=== PATIENT | female | born 1960 | race African-American/Black ===

== ENCOUNTER 2017-10-04 22:18 | Inpatient (IN) | payer MEDICAID, OTHER ==
[~2017-10-04] VITALS: Ht 162.6 cm; Wt 74.8 kg
[2017-10-04 22:18] VITALS: BP 156/97
[2017-10-04 23:21] LABS: EOSINOPHILS % (AUTO) 3.7 % (0.0-3.0); HEMATOCRIT 36.7 % (37.0-47.0); HEMOGLOBIN 12.1 G/DL (12.0-16.0); LYMPHOCYTES % (AUTO) 34.6 % (20.0-45.0); MEAN CORPUSCULAR VOLUME 81 FL (80-99); MONOCYTES % (AUTO) 3.6 % (1.0-10.0); NEUTROPHILS % (AUTO) 57.1 % (45.0-75.0); PLATELET COUNT 176 K/UL (150-450); RED BLOOD COUNT 4.51 M/UL (4.20-5.40); RED CELL DISTRIBUTION WIDTH 10.9 % (11.6-14.8); WHITE BLOOD COUNT 3.5 K/UL (4.8-10.8)
[2017-10-04 23:25] LABS: ANION GAP 5 mmol/L (5-15); BLOOD UREA NITROGEN 18 mg/dL (7-18); CARBON DIOXIDE 30 MMOL/L (21-32); CHLORIDE 103 MMOL/L (98-107); CREATININE 0.5 MG/DL (0.55-1.30); POTASSIUM 4.2 MMOL/L (3.5-5.1); SODIUM 138 MMOL/L (136-145)
[2017-10-04 23:37] LABS: ALANINE AMINOTRANSFERASE 19 U/L (12-78); ALBUMIN 2.9 G/DL (3.4-5.0); ALBUMIN/GLOBULIN RATIO 0.7 (1.0-2.7); ALKALINE PHOSPHATASE 118 U/L (46-116); ASPARTATE AMINO TRANSFERASE 23 U/L (15-37); BILIRUBIN,TOTAL 0.2 MG/DL (0.2-1.0)
[2017-10-05] VITALS (7 sets, daily range): BP systolic 103–145; BP diastolic 67–87
[2017-10-05 00:56] LABS: APPEARANCE,URINE CLEAR; BILIRUBIN, URINE NEGATIVE (NEGATIVE); GLUCOSE, URINE (UA) NEGATIVE (NEGATIVE); KETONES,URINE NEGATIVE (NEGATIVE); LEUKOCYTE ESTERASE ,URINE NEGATIVE (NEGATIVE); NITRITE,URINE NEGATIVE (NEGATIVE); PH,URINE 8 (4.5-8.0); PROTEIN,URINE NEGATIVE (NEGATIVE); UROBILINOGEN,URINE 1 MG/DL (0.0-1.0)
[2017-10-05 01:16] LABS: COLOR,URINE YELLOW
[2017-10-05] MEDS ORDERED: MULTIVITAMINS1 EAC2 ORAL (02:19)
[2017-10-05] MEDS ORDERED: ZOFRAN4 M3 ORAL (02:19)
[2017-10-05] MEDS ORDERED: MORPHINE IR15 MG ORAL (02:19)
[2017-10-05] MEDS ORDERED: AMLODIPINE BESY10 MG ORAL (02:19)
[2017-10-05] MEDS ORDERED: GABAPENTIN100 MG ORAL (02:19)
[2017-10-05] MEDS ORDERED: CARBAMAZEPINE200 MG ORAL (02:19)
[2017-10-05] MEDS ORDERED: DULCOLAX10 MG RC (02:19)
[2017-10-05] MEDS ORDERED: [UNRECOGNIZED DRUG - OTHER] BOTH EYES ×2 (02:19→04:00)
[2017-10-05] MEDS ORDERED: TUMS FRESHERS200 MG PO (02:19)
[2017-10-05] MEDS ORDERED: PANTOPRAZOLE SO40 MG ORAL (02:19)
[2017-10-05] MEDS ORDERED: HYDROCODON-ACE1 EA16 ORAL (02:19)
[2017-10-05] MEDS ORDERED: CYMBALTA60 MG ORAL (02:19)
[2017-10-05] MEDS ORDERED: METAMUCIL FIBE3.4 G1 PO (02:19)
[2017-10-05] MEDS ORDERED: CALCIUM CARBON500 M1 PO (04:00)
[2017-10-05] MEDS ORDERED: TEGRETOL100 MG/5 M PO (04:00)
[2017-10-05] MEDS ORDERED: NEURONTIN300 MG ORAL (04:00)
[2017-10-05] MEDS ORDERED: HYDROcodone/Acetamin 7.5/325 tab ORAL PRN (06:15)
[2017-10-05] MEDS ORDERED: Tums 500mg ORAL PRN ×3 (06:15→22:15)
[2017-10-05] MEDS ORDERED: Artificial Tears 1.4% Op Soln BOTH EYES PRN ×3 (07:00→19:00)
[2017-10-05] MEDS ORDERED: D5 1/2NS 1,000 ML IV SCH ×2 (07:00→17:45)
--- NOTE | 2017-10-05 08:38 | Consultation ---
History of Present Illness General Date patient seen: Oct 05, 2017 Present Illness Allergies: Coded Allergies: ASPIRIN (Unverified Allergy, Unknown, 10/04/17) BACLOFEN (Unverified Allergy, Unknown, 10/04/17) PHENYTOIN (Unverified Allergy, Unknown, 10/04/17) Medication History Scheduled Amlodipine Besylate* (Amlodipine Besylate*), 10 MG ORAL DAILY, (Reported) Carbamazepine (Tegretol), 200 MG PO BID, (Reported) Duloxetine Hcl* (Cymbalta*), 60 MG ORAL DAILY, (Reported) Gabapentin (Neurontin), 900 MG ORAL THREE TIMES A DAY, (Reported) Morphine HCl (Morphine Sulfate ER), 15 MG ORAL BID, (Reported) Multivitamins* (Multivitamins*), 1 TAB ORAL DAILY, (Reported) Pantoprazole* (Pantoprazole*), 40 MG ORAL DAILY, (Reported) Psyllium Husk/Aspartame (Metamucil Fiber Singles Packet), 3.4 GM PO BID, ( Reported) Scheduled PRN Bisacodyl (Dulcolax), 10 MG RC PRN PRN for Constipation, (Reported) Calcium Carbonate (Calcium Carbonate), 1,000 MG PO Q8HR PRN for HEARTBURN, ( Reported) Hydrocodone/Acetaminophen 7.5-325* (Hydrocodon-Acetaminoph 7.5-325*), 1 TAB ORAL Q3HR PRN for Severe Pain (Pain Scale 7-10), (Reported) Hydroxypropyl Methylcellulose ([place]), 1 DROP BOTH EYES Q3HR PRN for DRY EYES, ( Reported) Ondansetron* (Zofran*), 4 MG ORAL Q4HR PRN for Nausea & Vomiting, (Reported) Patient History Healthcare decision maker Resuscitation status Full Code Advanced Directive on File Physical Exam Last 24 Hour Vital Signs Date Time Temp Pulse Resp B/P (MAP) Pulse Ox O2 Delivery O2 Flow Rate FiO2 10/05/17 04:13 Room Air 10/05/17 04:00 77 10/05/17 04:00 97.1 82 18 141/87 (105) 95 97.1 10/05/17 03:39 83 10/05/17 03:10 98.6 78 12 109/74 97 Room Air 98.6 10/05/17 03:10 98.6 78 12 109/74 97 Room Air 209.5 10/05/17 01:14 98.6 81 12 125/74 98 Room Air 98.6 10/04/17 22:18 87 18 156/97 96 Room Air 10/04/17 22:05 97 18 156/97 96 Room Air Intake and Output 10/04/17 10/05/17 19:00 07:00 Intake Total 6 ml Output Total 500 ml Balance -494 ml Intake IV Total 6 ml Output Urine Total 500 ml # Voids 1 # Bowel Movements 1 Laboratory Tests Test 10/04/17 23:00 10/05/17 00:30 White Blood Count 3.5 K/UL (4.8-10.8) L Red Blood Count 4.51 M/UL (4.20-5.40) Hemoglobin 12.1 G/DL (12.0-16.0) Hematocrit 36.7 % (37.0-47.0) L Mean Corpuscular Volume 81 FL (80-99) Mean Corpuscular Hemoglobin 27.0 PG (27.0-31.0) Mean Corpuscular Hemoglobin Concent 33.1 G/DL (32.0-36.0) Red Cell Distribution Width 10.9 % (11.6-14.8) L Platelet Count 176 K/UL (150-450) Mean Platelet Volume 7.6 FL (6.5-10.1) Neutrophils (%) (Auto) 57.1 % (45.0-75.0) Lymphocytes (%) (Auto) 34.6 % (20.0-45.0) Monocytes (%) (Auto) 3.6 % (1.0-10.0) Eosinophils (%) (Auto) 3.7 % (0.0-3.0) H Basophils (%) (Auto) 1.0 % (0.0-2.0) Sodium Level 138 MMOL/L (136-145) Potassium Level 4.2 MMOL/L (3.5-5.1) Chloride Level 103 MMOL/L (98-107) Carbon Dioxide Level 30 MMOL/L (21-32) Anion Gap 5 mmol/L (5-15) Blood Urea Nitrogen 18 mg/dL (7-18) Creatinine 0.5 MG/DL (0.55-1.30) L Estimat Glomerular Filtration Rate > 60 mL/min (>60) Glucose Level 111 MG/DL (74-106) H Calcium Level 9.0 MG/DL (8.5-10.1) Total Bilirubin 0.2 MG/DL (0.2-1.0) Aspartate Amino Transf (AST/SGOT) 23 U/L (15-37) Alanine Aminotransferase (ALT/SGPT) 19 U/L (12-78) Alkaline Phosphatase 118 U/L (46-116) H Pro-B-Type Natriuretic Peptide 51 pg/mL (0-125) Total Protein 7.1 G/DL (6.4-8.2) Albumin 2.9 G/DL (3.4-5.0) L Globulin 4.2 g/dL Albumin/Globulin Ratio 0.7 (1.0-2.7) L Lipase 65 U/L (73-393) L Thyroid Stimulating Hormone (TSH) 0.942 uiU/mL (0.358-3.740) Acetaminophen Level < 2 MCG/ML (10-30) L Urine Color Yellow Urine Appearance Clear Urine pH 8 (4.5-8.0) Urine Specific [place] 1.015 (1.005-1.035) Urine Protein Negative (NEGATIVE) Urine Glucose (UA) Negative (NEGATIVE) Urine Ketones Negative (NEGATIVE) Urine Occult Blood Negative (NEGATIVE) Urine Nitrite Negative (NEGATIVE) Urine Bilirubin Negative (NEGATIVE) Urine Urobilinogen 1 MG/DL (0.0-1.0) H Urine Leukocyte Esterase Negative (NEGATIVE) Urine RBC 0-2 /HPF (0 - 2) Urine WBC 0 /HPF (0 - 2) Urine Squamous Epithelial Cells Few /LPF (NONE/OCC) Urine Bacteria None /HPF (NONE) Height (Feet): 5 Height (Inches): 4.00 Weight (Pounds): 165 Medications Current Medications Medications (Trade) Dose Ordered Sig/Arnold Route PRN Reason Start Time Stop Time Status Last Admin Dose Admin Acetaminophen/ Hydrocodone Bitart ([place] 7.5/325) 1 tab Q3H PRN ORAL Severe Pain (Pain Scale 7-10) 10/05/17 06:15 10/12/17 06:14 Amlodipine Besylate (Norvasc) 10 mg DAILY ORAL 10/05/17 09:00 11/04/17 08:59 Artificial Tears (Akwa-Tears) 1 drop Q3H PRN BOTH EYES DRY EYES 10/05/17 07:00 11/04/17 06:59 Bisacodyl (Dulcolax) 10 mg DAILY PRN RECTAL Constipation 10/05/17 06:15 11/04/17 06:14 Calcium Carbonate (Tums) 1,000 mg Q8H PRN ORAL HEARTBURN 10/05/17 06:15 11/04/17 06:14 Carbamazepine (TEGretol) 200 mg TWICE A DAY ORAL 10/05/17 09:00 11/04/17 08:59 Dextrose/Sodium Chloride 1,000 ml @ 60 mls/hr [id number] IV 10/05/17 07:00 11/04/17 06:59 10/05/17 06:54 Duloxetine HCl (Cymbalta) 60 mg DAILY ORAL 10/05/17 09:00 11/04/17 08:59 Gabapentin (Neurontin) 900 mg THREE TIMES A DAY ORAL 10/05/17 09:00 11/04/17 08:59 Morphine HCl (Morphine IR) 15 mg BID ORAL 10/05/17 09:00 10/12/17 08:59 UNV Multivitamins (Multivitamins) 1 tab DAILY ORAL 10/05/17 09:00 11/04/17 08:59 Ondansetron HCl (Zofran) 4 mg Q4H PRN ORAL Nausea & Vomiting 10/05/17 06:15 11/04/17 06:14 Pantoprazole (Protonix) 40 mg DAILY ORAL 10/05/17 09:00 11/04/17 08:59 Psyllium Hydrophilic Mucilloid (Metamucil) 1 pkt BID ORAL 10/05/17 09:00 11/04/17 08:59 Assessment/Plan Assessment/Plan (1) Multiple sclerosis (2) Neuropathic pain (3) Altered mental status Seen dictated Eddi Valentin Oct 05, 2017 08:38
[2017-10-05 08:46] LABS: BASOPHILS % (AUTO) 0.3 % (0.0-2.0); EOSINOPHILS % (AUTO) 2.5 % (0.0-3.0); HEMOGLOBIN 12.1 G/DL (12.0-16.0); LYMPHOCYTES % (AUTO) 24.2 % (20.0-45.0); MEAN CORPUSCULAR VOLUME 82 FL (80-99); NEUTROPHILS % (AUTO) 67.9 % (45.0-75.0); PLATELET COUNT 224 K/UL (150-450); RED BLOOD COUNT 4.51 M/UL (4.20-5.40); RED CELL DISTRIBUTION WIDTH 10.8 % (11.6-14.8); WHITE BLOOD COUNT 4.2 K/UL (4.8-10.8)
[2017-10-05] MEDS: Metamucil Pkt ORAL SCH ×3 (09:00→18:20)
[2017-10-05] MEDS ORDERED: Morphine IR 15mg tab ORAL SCH (09:00)
[2017-10-05] MEDS ORDERED: DULoxetine 30mg cap ORAL SCH (09:00)
[2017-10-05] MEDS ORDERED: Norco 5mg/325mg tab ORAL PRN ×3 (09:00→21:30)
[2017-10-05] MEDS ORDERED: carBAMazepine 200mg tab ORAL SCH ×3 (09:00→21:00)
[2017-10-05 09:01] LABS: ANION GAP 5 mmol/L (5-15); BLOOD UREA NITROGEN 17 mg/dL (7-18); CARBON DIOXIDE 29 MMOL/L (21-32); CHLORIDE 103 MMOL/L (98-107); CREATININE 0.5 MG/DL (0.55-1.30); SODIUM 137 MMOL/L (136-145)
--- NOTE | 2017-10-05 11:31 | Diagnostic Imaging Report ---
Indications: Altered mental status Technique: Spiral acquisitions obtained through the brain. Angled axial and coronal 5 x 5 mm slices were reconstructed. Total dose length product 1330.34 mGycm. CTDI vol(s) 70.38 mGy. Dose reduction achieved using automated exposure control Comparison: Cysts Findings: There is enlargement of the ventricles and extra axial CSF spaces, and periventricular deep white matter low-attenuation, consistent with chronic ischemic change. Old lacunar infarct is seen in the left frontal deep white matter and another in the left external capsule region.. No acute intracranial hemorrhage nor edema, mass effect, nor midline shift. Intact calvarium. Visualized orbits and sinuses are unremarkable. Impression: Cerebral volume loss, out of proportion to age. Periventricular deep white matter low-attenuation consistent with chronic ischemic change Old infarcts as described Negative for acute intracranial bleed or mass effect The CT scanner at [facility] is accredited by the [place] [employer] and the scans are performed using protocols designed to limit radiation exposure to as low as reasonably achievable to attain images of sufficient resolution adequate for diagnostic evaluation.
--- NOTE | 2017-10-05 11:57 | Consultation ---
History of Present Illness General Date patient seen: Oct 05, 2017 Chief Complaint: Altered Level of Consciousness Present Illness HPI 56 year old female with hx of MS, CVA, brought in by paramedics with CC of increased weakness and ALOC. Pt is currently awake and looks comfortable, but can't give any history. Allergies: Coded Allergies: ASPIRIN (Unverified Allergy, Unknown, 10/04/17) BACLOFEN (Unverified Allergy, Unknown, 10/04/17) PHENYTOIN (Unverified Allergy, Unknown, 10/04/17) Medication History Scheduled Amlodipine Besylate* (Amlodipine Besylate*), 10 MG ORAL DAILY, (Reported) Carbamazepine (Tegretol), 200 MG PO BID, (Reported) Duloxetine Hcl* (Cymbalta*), 60 MG ORAL DAILY, (Reported) Gabapentin (Neurontin), 900 MG ORAL THREE TIMES A DAY, (Reported) Morphine HCl (Morphine Sulfate ER), 15 MG ORAL BID, (Reported) Multivitamins* (Multivitamins*), 1 TAB ORAL DAILY, (Reported) Pantoprazole* (Pantoprazole*), 40 MG ORAL DAILY, (Reported) Psyllium Husk/Aspartame (Metamucil Fiber Singles Packet), 3.4 GM PO BID, ( Reported) Scheduled PRN Bisacodyl (Dulcolax), 10 MG RC PRN PRN for Constipation, (Reported) Calcium Carbonate (Calcium Carbonate), 1,000 MG PO Q8HR PRN for HEARTBURN, ( Reported) Hydrocodone/Acetaminophen 7.5-325* (Hydrocodon-Acetaminoph 7.5-325*), 1 TAB ORAL Q3HR PRN for Severe Pain (Pain Scale 7-10), (Reported) Hydroxypropyl Methylcellulose ([place]), 1 DROP BOTH EYES Q3HR PRN for DRY EYES, ( Reported) Ondansetron* (Zofran*), 4 MG ORAL Q4HR PRN for Nausea & Vomiting, (Reported) Patient History Healthcare decision maker Resuscitation status Full Code Advanced Directive on File Past Medical/Surgical History Past Medical/Surgical History: (1) Multiple sclerosis (2) History of CVA (cerebrovascular accident) Review of Systems All Other Systems: negative except mentioned in HPI Physical Exam General Appearance: WD/WN Lines, tubes and drains: peripheral HEENT: normocephalic, atraumatic Neck: non-tender, normal alignment Respiratory/Chest: chest wall non-tender, lungs clear Breasts: no masses Cardiovascular/Chest: normal peripheral pulses Abdomen: normal bowel sounds Genitourinary/Rectal: normal genital exam Extremities: normal range of motion Last 24 Hour Vital Signs Date Time Temp Pulse Resp B/P (MAP) Pulse Ox O2 Delivery O2 Flow Rate FiO2 10/05/17 09:53 89 135/86 10/05/17 09:00 Room Air 10/05/17 08:00 97.9 89 19 135/86 (102) 95 97.9 10/05/17 04:13 Room Air 10/05/17 04:00 77 10/05/17 04:00 97.1 82 18 141/87 (105) 95 97.1 10/05/17 03:39 83 10/05/17 03:10 98.6 78 12 109/74 97 Room Air 98.6 10/05/17 03:10 98.6 78 12 109/74 97 Room Air 209.5 10/05/17 01:14 98.6 81 12 125/74 98 Room Air 98.6 10/04/17 22:18 87 18 156/97 96 Room Air 10/04/17 22:05 97 18 156/97 96 Room Air Intake and Output 10/04/17 10/05/17 19:00 07:00 Intake Total 6 ml Output Total 500 ml Balance -494 ml Intake IV Total 6 ml Output Urine Total 500 ml # Voids 1 # Bowel Movements 1 Laboratory Tests Test 10/04/17 23:00 10/05/17 00:30 10/05/17 08:15 White Blood Count 3.5 K/UL (4.8-10.8) L 4.2 K/UL (4.8-10.8) L Red Blood Count 4.51 M/UL (4.20-5.40) 4.51 M/UL (4.20-5.40) Hemoglobin 12.1 G/DL (12.0-16.0) 12.1 G/DL (12.0-16.0) Hematocrit 36.7 % (37.0-47.0) L 37.0 % (37.0-47.0) Mean Corpuscular Volume 81 FL (80-99) 82 FL (80-99) Mean Corpuscular Hemoglobin 27.0 PG (27.0-31.0) 26.9 PG (27.0-31.0) L Mean Corpuscular Hemoglobin Concent 33.1 G/DL (32.0-36.0) 32.8 G/DL (32.0-36.0) Red Cell Distribution Width 10.9 % (11.6-14.8) L 10.8 % (11.6-14.8) L Platelet Count 176 K/UL (150-450) 224 K/UL (150-450) Mean Platelet Volume 7.6 FL (6.5-10.1) 6.4 FL (6.5-10.1) L Neutrophils (%) (Auto) 57.1 % (45.0-75.0) 67.9 % (45.0-75.0) Lymphocytes (%) (Auto) 34.6 % (20.0-45.0) 24.2 % (20.0-45.0) Monocytes (%) (Auto) 3.6 % (1.0-10.0) 5.0 % (1.0-10.0) Eosinophils (%) (Auto) 3.7 % (0.0-3.0) H 2.5 % (0.0-3.0) Basophils (%) (Auto) 1.0 % (0.0-2.0) 0.3 % (0.0-2.0) Sodium Level 138 MMOL/L (136-145) 137 MMOL/L (136-145) Potassium Level 4.2 MMOL/L (3.5-5.1) 4.0 MMOL/L (3.5-5.1) Chloride Level 103 MMOL/L (98-107) 103 MMOL/L (98-107) Carbon Dioxide Level 30 MMOL/L (21-32) 29 MMOL/L (21-32) Anion Gap 5 mmol/L (5-15) 5 mmol/L (5-15) Blood Urea Nitrogen 18 mg/dL (7-18) 17 mg/dL (7-18) Creatinine 0.5 MG/DL (0.55-1.30) L 0.5 MG/DL (0.55-1.30) L Estimat Glomerular Filtration Rate > 60 mL/min (>60) > 60 mL/min (>60) Glucose Level 111 MG/DL (74-106) H 97 MG/DL (74-106) Calcium Level 9.0 MG/DL (8.5-10.1) 9.0 MG/DL (8.5-10.1) Total Bilirubin 0.2 MG/DL (0.2-1.0) Aspartate Amino Transf (AST/SGOT) 23 U/L (15-37) Alanine Aminotransferase (ALT/SGPT) 19 U/L (12-78) Alkaline Phosphatase 118 U/L (46-116) H Pro-B-Type Natriuretic Peptide 51 pg/mL (0-125) Total Protein 7.1 G/DL (6.4-8.2) Albumin 2.9 G/DL (3.4-5.0) L Globulin 4.2 g/dL Albumin/Globulin Ratio 0.7 (1.0-2.7) L Lipase 65 U/L (73-393) L Thyroid Stimulating Hormone (TSH) 0.942 uiU/mL (0.358-3.740) Acetaminophen Level < 2 MCG/ML (10-30) L Urine Color Yellow Urine Appearance Clear Urine pH 8 (4.5-8.0) Urine Specific [place] 1.015 (1.005-1.035) Urine Protein Negative (NEGATIVE) Urine Glucose (UA) Negative (NEGATIVE) Urine Ketones Negative (NEGATIVE) Urine Occult Blood Negative (NEGATIVE) Urine Nitrite Negative (NEGATIVE) Urine Bilirubin Negative (NEGATIVE) Urine Urobilinogen 1 MG/DL (0.0-1.0) H Urine Leukocyte Esterase Negative (NEGATIVE) Urine RBC 0-2 /HPF (0 - 2) Urine WBC 0 /HPF (0 - 2) Urine Squamous Epithelial Cells Few /LPF (NONE/OCC) Urine Bacteria None /HPF (NONE) Height (Feet): 5 Height (Inches): 4.00 Weight (Pounds): 165 Medications Current Medications Medications (Trade) Dose Ordered Sig/Arnold Route PRN Reason Start Time Stop Time Status Last Admin Dose Admin Acetaminophen (Tylenol) 650 mg Q4H PRN ORAL Mild Pain/Temp > 100.5 10/05/17 09:00 11/04/17 08:59 Acetaminophen/ Hydrocodone Bitart ([place] 5/325) 1 tab Q4H PRN ORAL Severe Pain (Pain Scale 7-10) 10/05/17 09:30 10/12/17 08:59 Amlodipine Besylate (Norvasc) 10 mg DAILY ORAL 10/05/17 09:00 11/04/17 08:59 10/05/17 09:53 Artificial Tears (Akwa-Tears) 1 drop Q3H PRN BOTH EYES DRY EYES 10/05/17 07:00 11/04/17 06:59 Bisacodyl (Dulcolax) 10 mg DAILY PRN RECTAL Constipation 10/05/17 06:15 11/04/17 06:14 Calcium Carbonate (Tums) 1,000 mg Q8H PRN ORAL HEARTBURN 10/05/17 06:15 11/04/17 06:14 Carbamazepine (TEGretol) 200 mg Q12HR ORAL 10/05/17 09:00 11/04/17 08:59 10/05/17 09:53 Dextrose/Sodium Chloride 1,000 ml @ 60 mls/hr [id number] IV 10/05/17 07:00 11/04/17 06:59 10/05/17 06:54 Duloxetine HCl (Cymbalta) 60 mg DAILY ORAL 10/05/17 09:00 11/04/17 08:59 10/05/17 09:53 Gabapentin (Neurontin) 900 mg THREE TIMES A DAY ORAL 10/05/17 09:00 11/04/17 08:59 10/05/17 09:52 Multivitamins (Multivitamins) 1 tab DAILY ORAL 10/05/17 09:00 11/04/17 08:59 10/05/17 09:53 Ondansetron HCl (Zofran) 4 mg Q4H PRN ORAL Nausea & Vomiting 10/05/17 06:15 11/04/17 06:14 Pantoprazole (Protonix) 40 mg DAILY ORAL 10/05/17 09:00 11/04/17 08:59 10/05/17 09:52 Psyllium Hydrophilic Mucilloid (Metamucil) 1 pkt BID ORAL 10/05/17 09:00 11/04/17 08:59 Assessment/Plan Problem List: (1) Altered level of consciousness ICD Codes: R40.4 - Transient alteration of awareness SNOMED: 5108670 (2) Generalized weakness ICD Codes: R53.1 - Weakness SNOMED: 84182616 (3) Multiple sclerosis ICD Codes: G35 - Multiple sclerosis SNOMED: 83213343 (4) History of CVA (cerebrovascular accident) ICD Codes: Z86.73 - Personal history of transient ischemic attack (TIA), and cerebral infarction without residual deficits SNOMED: 037215553 Assessment/Plan neuro evaluation pt/ot look for occult infection dvt prophylaxis check electrolytes Ambrocio Poole MD Oct 05, 2017 11:57
[2017-10-05] MEDS ORDERED: Metamucil Pkt ORAL SCH (18:00)
[2017-10-05] MEDS: D5 1/2NS 1,000 ML IV SCH (18:20)
--- NOTE | 2017-10-05 20:11 | Consultation ---
Consult Note Consult Note NEUROLOGY CONSULTATION: Full note dictated #[id number] 56 y/o, RH, BF with long H/O MS which started in the late which was treated with Avonex and Copaxone in the past but she has not been given any DMA for numerous years. She also has left trigeminal neuralgia. She has not walked for numerous years and her limbs are in contractures. For the last few days she has become generally weaker and he mind has been less clear. ON EXAM: Problems with orientation, memory, VSF, HCF, language. 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 CT of brain with multiple DWM lesions. IMPRESSION: Exacerbation of MS Unclear what is causing the significant cognitive dysfunction - r/o treatable causes. REC: W/U for cognitive dysfunction MRI of brain w/o and W jayla to evaluate for acute MS exacerbation If positive Solumedrol 1 G IV q d x 3. Chela Moran M.D., M.S.P.H. CHELA MORAN Oct 05, 2017 20:11
[2017-10-05] MEDS ORDERED: Gadavist 7.5mMol/7.5ml vial IV PRN (20:15)
[2017-10-05] MEDS: Heparin 5000 units/ml inj SUBQ SCH (20:42)
[2017-10-05] MEDS: carBAMazepine 200mg tab ORAL SCH (20:43)
[2017-10-05] MEDS ORDERED: Heparin 5000 units/ml inj SUBQ SCH ×2 (21:00)
--- NOTE | 2017-10-05 22:00 | History and Physical Report ---
DATE OF ADMISSION: 10/05/2017 TIME: p.m. CONSULTANTS: 1. Ambrocio Poole M.D. 2. Seng Moran M.D. 3. Mulugeta Oreilly M.D. 4. Clayton Mott M.D. CHIEF COMPLAINT: Altered mental status, weakness and chronic pain. BRIEF HISTORY: This is a 56-year-old female from an assisted living facility presented with above-mentioned diagnoses, admitted to telemetry for further treatment. Currently calm, sleeping in bed, not really answer questions. PAST MEDICAL HISTORY: CVA, ulcer, altered mental status, multiple sclerosis and weakness. PAST SURGICAL HISTORY: Unknown. MEDICATIONS: Heparin, hydrocodone, amlodipine, multivitamin, pantoprazole, Dilantin, carbamazepine, Tylenol, , and Zofran. ALLERGIES: Aspirin, baclofen and phenytoin. SOCIAL HISTORY: Unable to obtain secondary to the patient's condition. REVIEW OF SYSTEMS: Unavailable. PHYSICAL EXAMINATION: GENERAL: Lethargic in bed, nonverbal. VITAL SIGNS: Temperature is 97 degrees, pulse 59, respirations 20, and blood pressure 145/82. CARDIOVASCULAR: No murmur. LUNGS: Poor air exchange. ABDOMEN: Bowel sounds distant. EXTREMITIES: No cyanosis, clubbing, or edema. NEUROLOGIC: The patient is flaccid in bed, not following directions. LABORATORY AND DIAGNOSTIC DATA: White count 4.2, otherwise CBC is normal. BMP show creatinine 0.5, otherwise normal. Urine toxicology, Tylenol less than 2. Urinalysis basically normal. ASSESSMENT: 1. Altered mental status. 2. Chronic pain. 3. Bed ridden. 4. Hypertension. 5. CVA. 6. Altered mental status. 7. Multiple sclerosis. 8. Weakness. PLAN: 1. Continue previous medications. 2. OT/PT. 3. Dietary evaluation. 4. Blood pressure and pain control. 5. We will continue to follow this patient. 6. Dr. Poole, Dr. Moran, Dr. Oreilly, and Dr. Mott to consult. He Orta D.O. DR: SIA JOB#: [id number] CC:
--- NOTE | 2017-10-05 22:30 | Consultation ---
DATE OF CONSULTATION: 10/05/2017 PAIN MANAGEMENT CONSULTATION CONSULTING PHYSICIAN: Mulugeta Oreilly M.D. REFERRING PHYSICIAN: He Orta D.O. PHYSICIAN INSPECTOR BOILER: KARRIE Garg. CHIEF COMPLAINT: Altered mental status. HISTORY OF PRESENT ILLNESS: This is a 56-year-old female, who is being seen on the telemetry floor of [facility] for initial comprehensive pain management consultation. The patient was admitted under the care of Dr. Orta due to altered mental status and generalized weakness. She has a history of MS and was recently seen by Jyoti Jamison, nurse practitioner in [facility], at this time, living in an assisted living facility, [facility], and again was seen by Jyoti Jamison in [facility] with nurse practitioner, started on morphine extended release 15 mg tablet twice a day with [place] solution and was brought to the hospital due to altered mental status. The patient reports that she has MS and has body pain due to neuropathic issues, is on Neurontin 900 mg 2 times a day. The patient is a DNR, in [facility] and possibly on hospice care. At this time, the patient was started on morphine immediate release 15 mg tablet twice a day with [place] 7.5/325 mg one tablet every 3 hours as needed for severe pain and I discussed with the patient about discontinuing this medication at this time so that the patient will become more oriented. She seems to understand and agree and is showing no signs of mental status changes at this time. PAST MEDICAL HISTORY: Multiple sclerosis. PAST SURGICAL HISTORY: Denies. ALLERGIES: Aspirin, baclofen, and phenytoin. MEDICATIONS: Amlodipine, Tegretol, Cymbalta, Neurontin, morphine, multivitamin, pantoprazole, Metamucil, Dulcolax, calcium, [place], Xanax, and Zofran. SOCIAL HISTORY: Denies smoking tobacco, drinking alcohol, or IV drug abuse. REVIEW OF SYSTEMS: Denies rash, fever, chills, sweating, dizziness, drowsiness, blurred vision, sore throat, change in weight. No shortness of breath or chest pain. No nausea, vomiting, or blood in the stool or urine. No bowel or bladder incontinence. She complains of general body pain. PHYSICAL EXAMINATION: GENERAL: Alert, awake, and oriented. VITAL SIGNS: Blood pressure 141/87, heart rate is 82, oxygen saturation is 95%, respiratory rate is 18, and temperature is 97.1 degrees Fahrenheit. HEENT: PERRLA. NECK: Range of motion is full in all directions. No tenderness to paracervical muscles. No adenopathy. LUNGS: Decreased breath sounds bilaterally. HEART: S1 and S2, regular. ABDOMEN: Benign. BACK: Range of motion is decreased in flexion and extension with tenderness to paraspinal muscles, trapezius, and rhomboid muscles. EXTREMITIES: Upper and lower extremity range of motion is decreased due to the patient's condition. No cyanosis. No clubbing. NEUROLOGIC: Sensory is reduced. Reflexes are not obtainable. No adenopathy. ASSESSMENT AND PLAN: This is a 56-year-old female with multiple sclerosis, neuropathic pain, and altered mental status. The patient will be discontinued off the morphine IR and will be decreased to [place] 5/325 mg one tablet every 4 hours as needed for severe pain. We recommend the patient to be seen by a neurologist at this time as per the mechanic recovery, and the patient was discussed with Dr. Oreilly and Dr. Oreilly concurred. We will follow the patient. Thank you very much for the courtesy of this consultation. Mulugeta Oreilly M.D. KARRIE Sorto DR: DEJUAN JOB#: [id number] CC:
[2017-10-06] VITALS: BP 102/57
[2017-10-06 04:00] VITALS: BP 111/79
--- NOTE | 2017-10-06 04:15 | Consultation ---
DATE OF CONSULTATION: 10/05/2017 NEUROLOGY CONSULTATION CONSULTING PHYSICIAN: Seng Moran M.D. REQUESTING PHYSICIAN: He Orta D.O. HISTORY: Ms. Arabella Gayle is a 56-year-old, right-handed, black lady who has a long history of multiple sclerosis which started in the late . She was treated for the problem at first with Avonex and then with Copaxone; however, for numerous years, she has been without any disease modifying agents. She also has a history of left trigeminal neuralgia, which at t his point in time is well controlled. She has not walked for numerous years and her limbs are in contractures. For the last few days, she has become generally weaker and her mind has become unclear. As a result of that, she was hospitalized from her [facility]. She cannot give any further details of what exactly happened. PAST MEDICAL HISTORY: Significant for multiple sclerosis, diagnosed in the late , treated with Avonex and Copaxone in the past, but on no disease modifying agent for numerous years, trigeminal neuralgia on the left side, significant debility related to her multiple sclerosis, and chronic pain syndrome related to multiple sclerosis. FAMILY HISTORY: Nothing significant as per the patient. PERSONAL HISTORY: Home: She lives in a fci. 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 Habits: She denies use of alcohol, tobacco, or illicit drugs. MEDICATIONS: Present medications include amlodipine, Cymbalta, Protonix, Tegretol 200 mg q.12 h., artificial tears, Zofran, Tylenol, gabapentin 900 mg 3 times a day, [place] p.r.n., and Metamucil. PHYSICAL EXAMINATION: GENERAL: She is a well-developed, well-nourished, black lady, lying in bed, in no acute distress. VITAL SIGNS: Pulse 85/minute, blood pressure 115/74 mmHg, respirations 20/minute, and temperature 97.9 degrees Fahrenheit. HEAD: Normocephalic and atraumatic. NECK: No neck rigidity was observed. EENT: Examination benign. NEUROLOGIC EXAMINATION: MENTAL STATUS EXAMINATION: She was awake and alert. She was oriented to self and September 2017. She did not know the exact date and did not know where she was located. She was able to recall 3/3 words immediately, but could only remember 2/3 words in 1 minute and 3 minutes. She was able to remember presidents, Trump and Obama, but could not remember presidents prior to that. Her mathematical skills were impaired. Her visuospatial function was also impaired. SPEECH: She had a mild dysarthria. LANGUAGE: She had anomia for low-frequency words. CRANIAL NERVE EXAMINATION: II: The visual everett were intact on confrontation testing. III, IV & : The external ocular movements were full and the pupils 3 mm in diameter, equal, round, regular, and reactive sluggishly to light. V: She had normal facial sensations and the temporales, masseters, and pterygoids functioned normally. VII: She had left seventh central facial paresis. VIII: She was able to hear well and had no nystagmus. IX: The palate moved symmetrically on phonation. X: She had no hoarseness of voice. XI: The sternocleidomastoids and trapezii functioned normally. XII: The tongue was in the midline without any fasciculations or atrophy. MOTOR SYSTEM: The tone was increased in all four extremities with a significant degree of spasticity involving the lower extremities more than the upper extremities and the left side more than the right side. Examination of muscle mass revealed significant wasting predominantly of the lower extremities and the left more than right upper extremity. Examination of power revealed G 0/5 power in both lower extremities, G 2/5 power in the left upper extremity and G 4/5 power in the right upper extremity. SENSORY EXAMINATION: She was able to discern between pinprick and light touch over her entire body. REFLEXES: 1+ on the left and trace+ on the right at the biceps, triceps, and brachioradialis. 0 at both knees and ankles. The plantar responses were mute bilaterally. COORDINATION, STANCE & GAIT: Could not be tested. DIAGNOSTIC IMPRESSION: 1. Ms. Arabella Gayle is a 56-year-old, right-handed, black lady with a long history of multiple sclerosis, which in the past was treated with Avonex and Copaxone, but has not been treated with any disease modifying agent for numerous years. She also has a history of left trigeminal neuralgia and significant debility related to her multiple sclerosis. She is now living in a fci, dependent on all her activities of daily living. She was hospitalized with increased generalized weakness and an alteration in mental state. 2. On neurological examination, at this time, she does exhibit problems with orientation, recent and remote memory, visuospatial function, higher cognitive function, and language. She also has left seventh central facial paresis, a paraplegia of a spastic nature, left greater than right upper extremity paresis, relatively normal sensations, loss of deep tendon reflexes in the lower extremities with loss of plantar responses and diminished deep tendon reflexes in the upper extremities with the left side slightly brisker than the right. 3. The CT scan of the brain without contrast reveals multiple deep white matter lesions, but no acute pathology. 4. Laboratory data thus far reveal a relatively normal CBC, a relatively normal chemistry panel and benign urinalysis. 5. The patient's history, neurological examination, and laboratory data associated with her imaging studies are most compatible with a possible exacerbation of her multiple sclerosis causing generalized weakness that is worse than her baseline. The cognitive dysfunction may also be related to the multiple sclerosis; however, other treatable causes should be excluded. RECOMMENDATIONS: 1. Agree with management thus far. 2. An MRI scan of the brain without and with gadolinium will be ordered to evaluate the patient for an acute MS exacerbation. 3. She will be worked up thoroughly for other treatable causes of cognitive dysfunction with a B12 level, folate level, vitamin D level, RPR, glycohemoglobin, Westergren sedimentation rate, TSH, and hemoglobin A1c. 4. If the MRI does in fact reveal a new MS lesion or lesions, then the patient will be treated with a 3-day course of Solu-Medrol 1 G intravenously daily. 5. The patient should be kept as active as possible. Thank you for entrusting me with the care of Ms. Gayle. I shall follow her with you. Seng Moran M.D., M.S.P.H. DR: JESSIKA JOB#: [id number] [email or web address]
[2017-10-06 07:27] LABS: BASOPHILS % (AUTO) 0.6 % (0.0-2.0); EOSINOPHILS % (AUTO) 1.9 % (0.0-3.0); HEMATOCRIT 34.6 % (37.0-47.0); HEMOGLOBIN 11.5 G/DL (12.0-16.0); LYMPHOCYTES % (AUTO) 19.4 % (20.0-45.0); MEAN CORPUSCULAR VOLUME 81 FL (80-99); NEUTROPHILS % (AUTO) 73.1 % (45.0-75.0); PLATELET COUNT 221 K/UL (150-450); RED BLOOD COUNT 4.25 M/UL (4.20-5.40); RED CELL DISTRIBUTION WIDTH 10.7 % (11.6-14.8); WHITE BLOOD COUNT 3.5 K/UL (4.8-10.8)
[2017-10-06 07:45] LABS: ANION GAP 4 mmol/L (5-15); BLOOD UREA NITROGEN 7 mg/dL (7-18); CALCIUM 8.9 MG/DL (8.5-10.1); CARBON DIOXIDE 30 MMOL/L (21-32); CHLORIDE 103 MMOL/L (98-107); CREATININE 0.5 MG/DL (0.55-1.30); POTASSIUM 3.6 MMOL/L (3.5-5.1); SODIUM 137 MMOL/L (136-145)
[2017-10-06 08:00] VITALS: BP 132/87
--- NOTE | 2017-10-06 08:49 | General Progress Note ---
Assessment/Plan Assessment/Plan (1) Multiple sclerosis (2) Neuropathic pain (3) Altered mental status Patient will be continued on [place] as needed. D/w Dr. Oreilly and he concurred. Subjective Date patient seen: Oct 06, 2017 Time patient seen: 07:00 - am Allergies: Coded Allergies: ASPIRIN (Unverified Allergy, Unknown, 10/04/17) BACLOFEN (Unverified Allergy, Unknown, 10/04/17) PHENYTOIN (Unverified Allergy, Unknown, 10/04/17) Subjective REVIEW OF SYSTEMS: Denies rash, fever, chills, sweating, dizziness, drowsiness, blurred vision, sore throat, change in weight. No shortness of breath or chest pain. No nausea, vomiting, or blood in the stool or urine. No bowel or bladder incontinence. She complains of general body pain. SUBJECTIVE: Patient is in bed showing no signs of pain or distress. Will be going for MRI of the brain as per Neurologist. She has no new complaints. Objective Last 24 Hour Vital Signs Date Time Temp Pulse Resp B/P (MAP) Pulse Ox O2 Delivery O2 Flow Rate FiO2 10/06/17 04:00 98.1 82 20 111/79 (90) 95 98.1 10/06/17 00:00 97.5 80 19 102/57 (72) 96 97.5 80 10/05/17 21:00 Room Air 10/05/17 20:00 97.3 85 20 103/67 (79) 98 97.3 10/05/17 16:00 97.9 85 20 115/74 (88) 97 97.9 10/05/17 12:00 79 10/05/17 12:00 97.2 80 21 145/82 (103) 95 97.2 10/05/17 09:53 89 135/86 10/05/17 09:00 Room Air Intake and Output 10/05/17 10/06/17 19:00 07:00 Intake Total 900 ml Balance 900 ml Intake Oral 240 ml IV Total 660 ml # Voids 4 # Bowel Movements 1 1 Laboratory Tests 10/06/17 06:00: White Blood Count 3.5L, Red Blood Count 4.25, Hemoglobin 11.5L, Hematocrit 34.6L , Mean Corpuscular Volume 81, Mean Corpuscular Hemoglobin 27.0, Mean Corpuscular Hemoglobin Concent 33.2, Red Cell Distribution Width 10.7L, Platelet Count 221, Mean Platelet Volume 6.8, Neutrophils (%) (Auto) 73.1, Lymphocytes (%) (Auto) 19.4L, Monocytes (%) (Auto) 5.0, Eosinophils (%) (Auto) 1.9, Basophils (%) (Auto) 0.6, Sodium Level 137, Potassium Level 3.6, Chloride Level 103, Carbon Dioxide Level 30, Anion Gap 4L, Blood Urea Nitrogen 7, Creatinine 0.5L, Estimat Glomerular Filtration Rate > 60, Glucose Level 107H, Calcium Level 8.9 Height (Feet): 5 Height (Inches): 4.00 Weight (Pounds): 165 Objective GENERAL: Alert, awake, and oriented. LUNGS: Decreased breath sounds bilaterally. HEART: S1 and S2, regular. ABDOMEN: Benign. EXTREMITIES: No cyanosis. No clubbing. NEUROLOGIC: No changes. Eddi Valentin Oct 06, 2017 08:49
[2017-10-06] MEDS ORDERED: DULoxetine 30mg cap ORAL SCH (09:00)
[2017-10-06] MEDS: Metamucil Pkt ORAL SCH ×2 (09:00→17:41)
[2017-10-06] MEDS: carBAMazepine 200mg tab ORAL SCH ×2 (10:01→21:00)
[2017-10-06] MEDS: DULoxetine 30mg cap ORAL SCH (10:01)
[2017-10-06] MEDS: Heparin 5000 units/ml inj SUBQ SCH ×2 (10:11→21:03)
[2017-10-06] MEDS: D5 1/2NS 1,000 ML IV SCH (10:12)
--- NOTE | 2017-10-06 11:22 | General Progress Note ---
Assessment/Plan Problem List: (1) HTN (hypertension) ICD Codes: I10 - Essential (primary) hypertension SNOMED: 71043774 (2) Chronic pain ICD Codes: G89.29 - Other chronic pain SNOMED: 23699873 (3) Altered level of consciousness ICD Codes: R40.4 - Transient alteration of awareness SNOMED: 9022140 (4) Multiple sclerosis ICD Codes: G35 - Multiple sclerosis SNOMED: 63042529 (5) History of CVA (cerebrovascular accident) ICD Codes: Z86.73 - Personal history of transient ischemic attack (TIA), and cerebral infarction without residual deficits SNOMED: 846976947 (6) Generalized weakness ICD Codes: R53.1 - Weakness SNOMED: 33115898 Status: unchanged Assessment/Plan ot pt diet pain control cbc bmp am Subjective Constitutional: Reports: weakness Allergies: Coded Allergies: ASPIRIN (Unverified Allergy, Unknown, 10/04/17) BACLOFEN (Unverified Allergy, Unknown, 10/04/17) PHENYTOIN (Unverified Allergy, Unknown, 10/04/17) All Systems: reviewed and negative except above Subjective calm in bed Objective Last 24 Hour Vital Signs Date Time Temp Pulse Resp B/P (MAP) Pulse Ox O2 Delivery O2 Flow Rate FiO2 10/06/17 10:00 94 132/87 10/06/17 09:00 Room Air 10/06/17 08:00 97.9 94 21 132/87 (102) 95 97.9 94 10/06/17 04:00 98.1 82 20 111/79 (90) 95 98.1 10/06/17 00:00 97.5 80 19 102/57 (72) 96 97.5 80 10/05/17 21:00 Room Air 10/05/17 20:00 97.3 85 20 103/67 (79) 98 97.3 10/05/17 16:00 97.9 85 20 115/74 (88) 97 97.9 10/05/17 12:00 79 10/05/17 12:00 97.2 80 21 145/82 (103) 95 97.2 Intake and Output 10/05/17 10/06/17 19:00 07:00 Intake Total 900 ml Balance 900 ml Intake Oral 240 ml IV Total 660 ml # Voids 4 # Bowel Movements 1 1 Laboratory Tests 8/10/18 06:00: White Blood Count 3.5L, Red Blood Count 4.25, Hemoglobin 11.5L, Hematocrit 34.6L , Mean Corpuscular Volume 81, Mean Corpuscular Hemoglobin 27.0, Mean Corpuscular Hemoglobin Concent 33.2, Red Cell Distribution Width 10.7L, Platelet Count 221, Mean Platelet Volume 6.8, Neutrophils (%) (Auto) 73.1, Lymphocytes (%) (Auto) 19.4L, Monocytes (%) (Auto) 5.0, Eosinophils (%) (Auto) 1.9, Basophils (%) (Auto) 0.6, Sodium Level 137, Potassium Level 3.6, Chloride Level 103, Carbon Dioxide Level 30, Anion Gap 4L, Blood Urea Nitrogen 7, Creatinine 0.5L, Estimat Glomerular Filtration Rate > 60, Glucose Level 107H, Calcium Level 8.9 Height (Feet): 5 Height (Inches): 4.00 Weight (Pounds): 165 General Appearance: lethargic EENT: normal ENT inspection Neck: normal alignment Cardiovascular: normal peripheral pulses, normal rate, regular rhythm Respiratory/Chest: chest wall non-tender, lungs clear, normal breath sounds Abdomen: normal bowel sounds, non tender, soft Extremities: normal inspection Edema: no edema noted Arm (L), no edema noted Arm (R), no edema noted Leg (L), no edema noted Leg (R), no edema noted Pedal (L), no edema noted Pedal (R), no edema noted Generalized Neurologic: motor weakness Skin: normal pigmentation, warm/dry He Orta DO Oct 06, 2017 11:22
[2017-10-06 12:00] VITALS: BP 129/69
--- NOTE | 2017-10-06 13:39 | Cardiology Report ---
APPROVED REPORT EKG Measurement Heart [id number] Normal sinus rhythm Inferior infarct, age undetermined Abnormal ECG
--- NOTE | 2017-10-06 13:42 | Diagnostic Imaging Report ---
Indication: History of multiple sclerosis, suspected acute exacerbation Technique: sagittal T1 fast spin echo, axial T1 and T2 FLAIR PROPELLER, axial T2 FS PROPELLER, T2* GRE, axial diffusion weighted images, post contrast axial and coronal T1 FLAIR PROPELLER images. ADC and exponential ADC maps generated Comparison: Head CT dated 10/05/2017. No comparison MRIs Findings: . Subtle area of diffusion restriction is seen in the high right parasagittal parietal lobe near the vertex. This is associated with an area of increased T2 signal. No associated enhancement. Small focus of diffusion restriction is seen in the left hayden radiata, likewise associated with a small perpendicular focus of high T2 signal. No associated enhancement. No other definite foci of restricted diffusion demonstrated. There is a tiny punctate focus of contrast enhancement within the midbrain to the left of midline. Suspect that this is artifactual, as the adjacent cut demonstrates a linear high signal focus extending to and beyond the anterior surface of the brain. No associated diffusion signal abnormality and only questionable T2 signal abnormality is noted. No other abnormal contrast enhancement. Multiple foci of high T2 signal are seen in the periventricular deep white matter, some with typical perpendicular orientation. A few small punctate high T2 signal foci are seen in the cerebellum bilaterally. No acute hemorrhage or edema. No mass effect nor midline shift. There is age-related enlargement of the ventricles and extra axial CSF spaces, somewhat striking for age. Visualized orbits and sinuses are unremarkable. Empty sella is incidentally noted. Impression: Fairly extensive periventricular deep white matter signal abnormality, appearance of which is typical of stated clinical history of multiple sclerosis. Foci of abnormal diffusion signal in the right parietal deep white matter and left hayden radiata are consistent with active demyelination. Involutional changes, somewhat striking for age Negative for acute intracranial bleed or mass effect Incidental finding of empty sella
--- NOTE | 2017-10-06 14:35 | Neurology Progress Note ---
Interim History Interim History Interim History Ms. Gayle feels about the same as yesterday. There has been no improvement in her strength. She was able to feed herself with her right hand until a few days ago and has now lost that skill. She denies any other new neurologic symptoms. Review of Systems Neuro Review of Systems Benign. Objective Physical Exam Last Vital Signs Date Time Temp Pulse Resp B/P (MAP) Pulse Ox O2 Delivery O2 Flow Rate FiO2 10/06/17 12:00 98.8 86 21 129/69 (89) 97 98.8 86 10/06/17 09:00 Room Air Laboratory Tests Test 10/06/17 06:00 White Blood Count 3.5 K/UL (4.8-10.8) L Red Blood Count 4.25 M/UL (4.20-5.40) Hemoglobin 11.5 G/DL (12.0-16.0) L Hematocrit 34.6 % (37.0-47.0) L Mean Corpuscular Volume 81 FL (80-99) Mean Corpuscular Hemoglobin 27.0 PG (27.0-31.0) Mean Corpuscular Hemoglobin Concent 33.2 G/DL (32.0-36.0) Red Cell Distribution Width 10.7 % (11.6-14.8) L Platelet Count 221 K/UL (150-450) Mean Platelet Volume 6.8 FL (6.5-10.1) Neutrophils (%) (Auto) 73.1 % (45.0-75.0) Lymphocytes (%) (Auto) 19.4 % (20.0-45.0) L Monocytes (%) (Auto) 5.0 % (1.0-10.0) Eosinophils (%) (Auto) 1.9 % (0.0-3.0) Basophils (%) (Auto) 0.6 % (0.0-2.0) Sodium Level 137 MMOL/L (136-145) Potassium Level 3.6 MMOL/L (3.5-5.1) Chloride Level 103 MMOL/L (98-107) Carbon Dioxide Level 30 MMOL/L (21-32) Anion Gap 4 mmol/L (5-15) L Blood Urea Nitrogen 7 mg/dL (7-18) Creatinine 0.5 MG/DL (0.55-1.30) L Estimat Glomerular Filtration Rate > 60 mL/min (>60) Glucose Level 107 MG/DL (74-106) H Calcium Level 8.9 MG/DL (8.5-10.1) Neurologic Exam Objective PHYSICAL EXAMINATION: GENERAL: She is a well-developed, well-nourished, black lady, lying in bed, in no acute distress. HEAD: Normocephalic and atraumatic. NECK: No neck rigidity was observed. EENT: Examination benign. NEUROLOGIC EXAMINATION: MENTAL STATUS EXAMINATION: She was awake and alert. She was oriented to self, [facility] and October 06, 2017 with hints. She was able to recall 3/3 words immediately, but could only remember 2/3 words in 1 minute and 3 minutes. She was able to remember presidents, Trump and Obama, but could not remember presidents prior to that. Her mathematical skills were impaired. Her visuospatial function was also impaired. SPEECH: She had a mild dysarthria. LANGUAGE: She had anomia for low-frequency words. CRANIAL NERVE EXAMINATION: II: The visual everett were intact on confrontation testing. III, IV & : The external ocular movements were full and the pupils 3 mm in diameter, equal, round, regular, and reactive sluggishly to light. V: She had normal facial sensations and the temporales, masseters, and pterygoids functioned normally. VII: She had left seventh central facial paresis. VIII: She was able to hear well and had no nystagmus. IX: The palate moved symmetrically on phonation. X: She had no hoarseness of voice. XI: The sternocleidomastoids and trapezii functioned normally. XII: The tongue was in the midline without any fasciculations or atrophy. MOTOR SYSTEM: The tone was increased in all four extremities with a significant degree of spasticity involving the lower extremities more than the upper extremities and the left side more than the right side. Examination of muscle mass revealed significant wasting predominantly of the lower extremities and the left more than right upper extremity. Examination of power revealed G 0/5 power in both lower extremities, G 2/5 power in the left upper extremity and G 4/5 power in the right upper extremity. SENSORY EXAMINATION: She was able to discern between pinprick and light touch over her entire body. REFLEXES: 1+ on the left and trace+ on the right at the biceps, triceps, and brachioradialis. 0 at both knees. 4+ at both ankles. The plantar responses were mute bilaterally. COORDINATION, STANCE & GAIT: Could not be tested. Impression/Recommendations Diagnostic Impression 1. Ms. Arabella Gayle is a 56-year-old, right-handed, black lady with a long history of multiple sclerosis, which in the past was treated with Avonex and Copaxone, but has not been treated with any disease modifying agent for numerous years. She also has a history of left trigeminal neuralgia and significant debility related to her multiple sclerosis. She is now living in a shelter, dependent on all her activities of daily living. She was hospitalized with increased generalized weakness and an alteration in mental state. 2. She feels about the same as yesterday. There has been no improvement in her strength. She was able to feed herself with her right hand until a few days ago and has now lost that skill. She denies any other new neurologic symptoms. 3. On neurological examination, she does exhibit problems with recent and remote memory, visuospatial function, higher cognitive function, and language. She also has left seventh central facial paresis, a paraplegia of a spastic nature, left greater than right upper extremity paresis, relatively normal sensations, loss of deep tendon reflexes at the knees with clonus at the ankles with loss of plantar responses and diminished deep tendon reflexes in the upper extremities with the left side slightly brisker than the right. 4. The CT scan of the brain without contrast reveals multiple deep white matter lesions, but no acute pathology. 5. The MRI of the brain done on 10/06/17 revealed: Fairly extensive periventricular deep white matter signal abnormality which is typical of multiple sclerosis. Foci of abnormal diffusion signal in the right parietal deep white matter and left hayden radiata are consistent with active demyelination. 6. Laboratory data thus far reveal a relatively normal CBC, a relatively normal chemistry panel and benign urinalysis. 7. Further laboratory data have revealed no treatable cause of cognitive decline. 8. The patient's history, neurological examination, laboratory data and imaging studies are most compatible with an acute exacerbation of her multiple sclerosis with active right parietal deep white matter and left hayden radiata lesions. Recommendations 1. Continue present management. 2. Start 3-day course of Solu-Medrol 1 G intravenously daily. 3. The patient should be kept as active as possible. Seng Middleton M.D., M.S.P.H. SENG MIDDLETON Oct 06, 2017 14:35
[2017-10-06 15:47] VITALS: BP 106/69
[2017-10-06] MEDS: methylPREDNISolone Sod Succ 1,000 MG in NS 275 ML IVPB SCH (15:54)
[2017-10-06 20:00] VITALS: BP 111/66
[2017-10-07] VITALS: BP 122/76
[2017-10-07] MEDS: D5 1/2NS 1,000 ML IV SCH ×2 (03:20→12:35)
[2017-10-07 04:00] VITALS: BP 122/75
[2017-10-07 06:21] LABS: HEMATOCRIT 34.1 % (37.0-47.0); HEMOGLOBIN 11.6 G/DL (12.0-16.0); MEAN CORPUSCULAR VOLUME 81 FL (80-99); PLATELET COUNT 209 K/UL (150-450); RED CELL DISTRIBUTION WIDTH 10.8 % (11.6-14.8); WHITE BLOOD COUNT 2.7 K/UL (4.8-10.8)
[2017-10-07 06:36] LABS: ANION GAP 7 mmol/L (5-15); BLOOD UREA NITROGEN 6 mg/dL (7-18); CARBON DIOXIDE 28 MMOL/L (21-32); CHLORIDE 103 MMOL/L (98-107); CREATININE 0.6 MG/DL (0.55-1.30); POTASSIUM 3.4 MMOL/L (3.5-5.1); SODIUM 138 MMOL/L (136-145)
[2017-10-07 08:00] VITALS: BP 137/78
[2017-10-07] MEDS: Metamucil Pkt ORAL SCH ×2 (08:43→17:51)
[2017-10-07] MEDS: DULoxetine 30mg cap ORAL SCH (08:43)
[2017-10-07] MEDS: carBAMazepine 200mg tab ORAL SCH ×2 (08:44→20:33)
[2017-10-07] MEDS: Norco 5mg/325mg tab ORAL PRN ×3 (08:44→17:51)
[2017-10-07] MEDS: Heparin 5000 units/ml inj SUBQ SCH ×2 (08:55→20:35)
--- NOTE | 2017-10-07 09:01 | General Progress Note ---
Assessment/Plan Problem List: (1) Chronic pain ICD Codes: G89.29 - Other chronic pain SNOMED: 19780597 (2) Altered level of consciousness ICD Codes: R40.4 - Transient alteration of awareness SNOMED: 8225922 (3) Multiple sclerosis ICD Codes: G35 - Multiple sclerosis SNOMED: 05584277 (4) History of CVA (cerebrovascular accident) ICD Codes: Z86.73 - Personal history of transient ischemic attack (TIA), and cerebral infarction without residual deficits SNOMED: 756636159 (5) Generalized weakness ICD Codes: R53.1 - Weakness SNOMED: 77243310 (6) HTN (hypertension) ICD Codes: I10 - Essential (primary) hypertension SNOMED: 39508904 (7) Leukopenia ICD Codes: D72.819 - Decreased white blood cell count, unspecified SNOMED: 92275123, 031352678 Status: stable, progressing Assessment/Plan ot pt diet pain control cbc bmp am Subjective Constitutional: Reports: weakness Allergies: Coded Allergies: ASPIRIN (Unverified Allergy, Unknown, 10/04/17) BACLOFEN (Unverified Allergy, Unknown, 10/04/17) PHENYTOIN (Unverified Allergy, Unknown, 10/04/17) All Systems: reviewed and negative except above Subjective calm in bed Objective Last 24 Hour Vital Signs Date Time Temp Pulse Resp B/P (MAP) Pulse Ox O2 Delivery O2 Flow Rate FiO2 10/07/17 08:47 100 137/78 10/07/17 06:41 97.7 10/07/17 05:42 97.7 10/07/17 04:00 97.7 85 20 122/75 (91) 99 97.7 10/07/17 01:28 98.1 10/07/17 00:00 98.1 81 20 122/76 (91) 97 98.1 10/06/17 21:00 Room Air 10/06/17 20:00 97.9 88 20 111/66 (81) 95 97.9 10/06/17 15:47 98.2 93 20 106/69 (81) 98.2 93 10/06/17 12:00 98.8 86 21 129/69 (89) 97 98.8 86 10/06/17 10:00 94 132/87 10/06/17 09:00 Room Air Intake and Output 10/06/17 10/07/17 19:00 07:00 Intake Total 1295 ml 1080 ml Balance 1295 ml 1080 ml Intake Oral 420 ml 480 ml IV Total 875 ml 600 ml # Voids 3 3 # Bowel Movements 2 Laboratory Tests 10/07/17 04:40: White Blood Count 2.7L, Red Blood Count 4.20, Hemoglobin 11.6L, Hematocrit 34.1L , Mean Corpuscular Volume 81, Mean Corpuscular Hemoglobin 27.6, Mean Corpuscular Hemoglobin Concent 34.1, Red Cell Distribution Width 10.8L, Platelet Count 209, Mean Platelet Volume 7.1, Neutrophils (%) (Auto) , Lymphocytes (%) (Auto) , Monocytes (%) (Auto) , Eosinophils (%) (Auto) , Basophils (%) (Auto) , Neutrophils % (Manual) [Pending], Lymphocytes % (Manual) [Pending], Platelet Estimate [Pending], Platelet Morphology [Pending], Sodium Level 138, Potassium Level 3.4L, Chloride Level 103, Carbon Dioxide Level 28, Anion Gap 7, Blood Urea Nitrogen 6L, Creatinine 0.6, Estimat Glomerular Filtration Rate > 60, Glucose Level 137H, Calcium Level 9.0 Height (Feet): 5 Height (Inches): 4.00 Weight (Pounds): 165 General Appearance: lethargic EENT: normal ENT inspection Neck: normal alignment Cardiovascular: normal peripheral pulses, normal rate, regular rhythm Respiratory/Chest: chest wall non-tender, lungs clear, normal breath sounds Abdomen: normal bowel sounds, non tender, soft Extremities: normal inspection Edema: no edema noted Arm (L), no edema noted Arm (R), no edema noted Leg (L), no edema noted Leg (R), no edema noted Pedal (L), no edema noted Pedal (R), no edema noted Generalized Neurologic: motor weakness Skin: normal pigmentation, warm/dry He Orta DO Oct 07, 2017 09:01
[2017-10-07] MEDS: methylPREDNISolone Sod Succ 1,000 MG in NS 275 ML IVPB SCH (10:15)
[2017-10-07 12:00] VITALS: BP 134/74
--- NOTE | 2017-10-07 13:15 | Neurology Progress Note ---
Interim History Interim History Interim History Ms. Gayle feels better. She tolerated the Solumedrol well. She feels a little stronger today. She was able to partially feed herself today. She denies any other new neurologic symptoms. Review of Systems Neuro Review of Systems Benign. Objective Physical Exam Last Vital Signs Date Time Temp Pulse Resp B/P (MAP) Pulse Ox O2 Delivery O2 Flow Rate FiO2 10/07/17 12:00 97.0 100 18 134/74 (94) 99 97.0 10/07/17 09:00 Room Air Laboratory Tests Test 10/07/17 04:40 White Blood Count 2.7 K/UL (4.8-10.8) L Red Blood Count 4.20 M/UL (4.20-5.40) Hemoglobin 11.6 G/DL (12.0-16.0) L Hematocrit 34.1 % (37.0-47.0) L Mean Corpuscular Volume 81 FL (80-99) Mean Corpuscular Hemoglobin 27.6 PG (27.0-31.0) Mean Corpuscular Hemoglobin Concent 34.1 G/DL (32.0-36.0) Red Cell Distribution Width 10.8 % (11.6-14.8) L Platelet Count 209 K/UL (150-450) Mean Platelet Volume 7.1 FL (6.5-10.1) Neutrophils (%) (Auto) % (45.0-75.0) Lymphocytes (%) (Auto) % (20.0-45.0) Monocytes (%) (Auto) % (1.0-10.0) Eosinophils (%) (Auto) % (0.0-3.0) Basophils (%) (Auto) % (0.0-2.0) Differential Total Cells Counted 100 Neutrophils % (Manual) 80 % (45-75) H Lymphocytes % (Manual) 19 % (20-45) L Monocytes % (Manual) 1 % (1-10) Eosinophils % (Manual) 0 % (0-3) Basophils % (Manual) 0 % (0-2) Band Neutrophils 0 % (0-8) Platelet Estimate Adequate Platelet Morphology Normal Sodium Level 138 MMOL/L (136-145) Potassium Level 3.4 MMOL/L (3.5-5.1) L Chloride Level 103 MMOL/L (98-107) Carbon Dioxide Level 28 MMOL/L (21-32) Anion Gap 7 mmol/L (5-15) Blood Urea Nitrogen 6 mg/dL (7-18) L Creatinine 0.6 MG/DL (0.55-1.30) Estimat Glomerular Filtration Rate > 60 mL/min (>60) Glucose Level 137 MG/DL (74-106) H Calcium Level 9.0 MG/DL (8.5-10.1) Neurologic Exam Objective PHYSICAL EXAMINATION: GENERAL: She is a well-developed, well-nourished, black lady, lying in bed, in no acute distress. HEAD: Normocephalic and atraumatic. NECK: No neck rigidity was observed. EENT: Examination benign. NEUROLOGIC EXAMINATION: MENTAL STATUS EXAMINATION: She was awake and alert. She was oriented to self, [facility] [place] and October 07, 2017 with hints. She was able to recall 3/3 words immediately, but could only remember 2/3 words in 1 minute and 3 minutes. She was able to remember presidents, Trump and Obama, but could not remember presidents prior to that. Her mathematical skills were impaired. Her visuospatial function was also impaired. SPEECH: She had a mild dysarthria. LANGUAGE: She had anomia for low-frequency words. CRANIAL NERVE EXAMINATION: II: The visual everett were intact on confrontation testing. III, IV & : The external ocular movements were full and the pupils 3 mm in diameter, equal, round, regular, and reactive sluggishly to light. V: She had normal facial sensations and the temporales, masseters, and pterygoids functioned normally. VII: She had left seventh central facial paresis. VIII: She was able to hear well and had no nystagmus. IX: The palate moved symmetrically on phonation. X: She had no hoarseness of voice. XI: The sternocleidomastoids and trapezii functioned normally. XII: The tongue was in the midline without any fasciculations or atrophy. MOTOR SYSTEM: The tone was increased in all four extremities with a significant degree of spasticity involving the lower extremities more than the upper extremities and the left side more than the right side. Examination of muscle mass revealed significant wasting predominantly of the lower extremities and the left more than right upper extremity. Examination of power revealed G 0/5 power in both lower extremities, G 2/5 power in the left upper extremity and G 4/5 power in the right upper extremity except for G 4+/5 in the right finger flexors. SENSORY EXAMINATION: She was able to discern between pinprick and light touch over her entire body. REFLEXES: 1+ on the left and trace+ on the right at the biceps, triceps, and brachioradialis. 0 at both knees. 4+ at both ankles. The plantar responses were mute bilaterally. COORDINATION, STANCE & GAIT: Could not be tested. Impression/Recommendations Diagnostic Impression 1. Ms. Arabella Gayle is a 56-year-old, right-handed, black lady with a long history of multiple sclerosis, which in the past was treated with Avonex and Copaxone, but has not been treated with any disease modifying agent for numerous years. She also has a history of left trigeminal neuralgia and significant debility related to her multiple sclerosis. She is now living in a alf, dependent on all her activities of daily living. She was hospitalized with increased generalized weakness and an alteration in mental state. 2. She feels better. She tolerated the Solumedrol well. She feels a little stronger today. She was able to partially feed herself today. She denies any other new neurologic symptoms. 3. On neurological examination, she does exhibit problems with recent and remote memory, visuospatial function, higher cognitive function, and language. She also has left seventh central facial paresis, a paraplegia of a spastic nature, left greater than right upper extremity paresis - with minimal increase in power in the right hand, relatively normal sensations, loss of deep tendon reflexes at the knees with clonus at the ankles with loss of plantar responses and diminished deep tendon reflexes in the upper extremities with the left side slightly brisker than the right. 4. The CT scan of the brain without contrast reveals multiple deep white matter lesions, but no acute pathology. 5. The MRI of the brain done on 10/06/17 revealed: Fairly extensive periventricular deep white matter signal abnormality which is typical of multiple sclerosis. Foci of abnormal diffusion signal in the right parietal deep white matter and left hayden radiata are consistent with active demyelination. 6. Laboratory data thus far reveal a relatively normal CBC, a relatively normal chemistry panel and benign urinalysis. 7. Further laboratory data have revealed no treatable cause of cognitive decline. 8. The patient's history, neurological examination, laboratory data and imaging studies are most compatible with an acute exacerbation of her multiple sclerosis with active right parietal deep white matter and left hayden radiata lesions. She is minimally stronger in her right hand and could feed herself today. Recommendations 1. Continue present management. 2. Finish 3-day course of Solu-Medrol 1 G intravenously. 3. The patient should be kept as active as possible. Seng Middleton M.D., M.S.P.H. SENG MIDDLETON Oct 07, 2017 13:15
[2017-10-07 16:00] VITALS: BP 121/74
--- NOTE | 2017-10-07 16:05 | Emergency Room Report ---
History of Present Illness General Chief Complaint: Altered Level of Consciousness Source: EMS Present Illness HPI Patient is a 56-year-old female who presented after increased altered level of consciousness. Patient had gradual onset of symptoms. Patient was noted to have prior history of chronic debilitation. She's noted be less responsive than baseline. Patient had prior history of chronic pain. The patient noted be taking multiple sedative medications. Allergies: Coded Allergies: ASPIRIN (Unverified Allergy, Unknown, 10/04/17) BACLOFEN (Unverified Allergy, Unknown, 10/04/17) PHENYTOIN (Unverified Allergy, Unknown, 10/04/17) Patient History Last Menstrual Period: n/a Reviewed Nursing Documentation: PMH: Agreed; PSxH: Agreed Nursing Documentation-PMH Past Medical History: No History, Except For Hx Hypertension: Yes Hx Cancer: No Hx Neurological Problems: Yes - Generalized weakness Hx Multiple Sclerosis: Yes - Neuralgia Review of Systems All Other Systems: negative except mentioned in HPI Physical Exam Vital Signs Date Time Temp Pulse Resp B/P (MAP) Pulse Ox O2 Delivery O2 Flow Rate FiO2 10/04/17 22:05 97 18 156/97 96 Room Air 10/05/17 01:14 98.6 98.6 Sp02 EP Interpretation: reviewed, normal General Appearance: normal inspection, non-toxic, lethargic, Chronically Ill Head: atraumatic Neck: normal inspection, no bony tend, limited range of motion Respiratory: lungs clear, normal breath sounds, no respiratory distress, no retraction, no wheezing Cardiovascular #1: regular rate, rhythm, no edema Gastrointestinal: normal inspection, normal bowel sounds, non tender, soft, no guarding, no hernia Genitourinary: no CVA tenderness Musculoskeletal: decreased range of motion Neurologic: motor weakness, other - GCS 9, respond to pain Psychiatric: depressed affect Skin: normal inspection, normal color, no rash Medical Decision Making Diagnostic Impression: Primary Impression: Altered level of consciousness Additional Impression: Generalized weakness ER Course patient preseed for altered mental status..Differential diagnosis included but was not limited to ischemic stroke, subarachnoid hemorrhage, hypoglycemia, spinal cord injury, neurodegenerative disorder, urinary tract infection, hypoxemia.Because of complexity of patient's case laboratory testing and imaging studies were ordered.Laboratory testing showed a normal white blood count. Patient appears to have some chronic weakness however patient appears to be more altered than her baseline. Dr. He Orta was contacted for inpatient management. Labs Test 10/04/17 23:00 10/05/17 00:30 10/05/17 08:15 10/07/17 04:40 Total Bilirubin 0.2 MG/DL (0.2-1.0) Aspartate Amino Transf (AST/SGOT) 23 U/L (15-37) Alanine Aminotransferase (ALT/SGPT) 19 U/L (12-78) Alkaline Phosphatase 118 U/L (46-116) Pro-B-Type Natriuretic Peptide 51 pg/mL (0-125) Total Protein 7.1 G/DL (6.4-8.2) Albumin 2.9 G/DL (3.4-5.0) Globulin 4.2 g/dL Albumin/Globulin Ratio 0.7 (1.0-2.7) Lipase 65 U/L (73-393) Thyroid Stimulating Hormone (TSH) 0.942 uiU/mL (0.358-3.740) Acetaminophen Level < 2 MCG/ML (10-30) Urine Color Yellow Urine Appearance Clear Urine pH 8 (4.5-8.0) Urine Specific [place] 1.015 (1.005-1.035) Urine Protein Negative (NEGATIVE) Urine Glucose (UA) Negative (NEGATIVE) Urine Ketones Negative (NEGATIVE) Urine Occult Blood Negative (NEGATIVE) Urine Nitrite Negative (NEGATIVE) Urine Bilirubin Negative (NEGATIVE) Urine Urobilinogen 1 MG/DL (0.0-1.0) Urine Leukocyte Esterase Negative (NEGATIVE) Urine RBC 0-2 /HPF (0 - 2) Urine WBC 0 /HPF (0 - 2) Urine Squamous Epithelial Cells Few /LPF (NONE/OCC) Urine Bacteria None /HPF (NONE) Erythrocyte Sedimentation Rate 59 MM/HR (0-30) Hemoglobin A1c 5.3 % (4.3-6.0) Vitamin B12 Level 683 PG/ML (193-986) Folate 17.2 NG/ML (8.6-58.9) Rapid Plasma Reagin Non reactive (Non Reactive) White Blood Count 2.7 K/UL (4.8-10.8) Red Blood Count 4.20 M/UL (4.20-5.40) Hemoglobin 11.6 G/DL (12.0-16.0) Hematocrit 34.1 % (37.0-47.0) Mean Corpuscular Volume 81 FL (80-99) Mean Corpuscular Hemoglobin 27.6 PG (27.0-31.0) Mean Corpuscular Hemoglobin Concent 34.1 G/DL (32.0-36.0) Red Cell Distribution Width 10.8 % (11.6-14.8) Platelet Count 209 K/UL (150-450) Mean Platelet Volume 7.1 FL (6.5-10.1) Neutrophils (%) (Auto) % (45.0-75.0) Lymphocytes (%) (Auto) % (20.0-45.0) Monocytes (%) (Auto) % (1.0-10.0) Eosinophils (%) (Auto) % (0.0-3.0) Basophils (%) (Auto) % (0.0-2.0) Differential Total Cells Counted 100 Neutrophils % (Manual) 80 % (45-75) Lymphocytes % (Manual) 19 % (20-45) Monocytes % (Manual) 1 % (1-10) Eosinophils % (Manual) 0 % (0-3) Basophils % (Manual) 0 % (0-2) Band Neutrophils 0 % (0-8) Platelet Estimate Adequate Platelet Morphology Normal Sodium Level 138 MMOL/L (136-145) Potassium Level 3.4 MMOL/L (3.5-5.1) Chloride Level 103 MMOL/L (98-107) Carbon Dioxide Level 28 MMOL/L (21-32) Anion Gap 7 mmol/L (5-15) Blood Urea Nitrogen 6 mg/dL (7-18) Creatinine 0.6 MG/DL (0.55-1.30) Estimat Glomerular Filtration Rate > 60 mL/min (>60) Glucose Level 137 MG/DL (74-106) Calcium Level 9.0 MG/DL (8.5-10.1) Last Vital Signs Date Time Temp Pulse Resp B/P (MAP) Pulse Ox O2 Delivery O2 Flow Rate FiO2 10/07/17 12:00 97.0 100 18 134/74 (94) 99 97.0 10/07/17 09:00 Room Air Status: improved Disposition: ADMITTED INPATIENT Condition: Serious Referrals: NON PHYSICIAN (PCP) Myles Adams MD Oct 07, 2017 16:05
--- NOTE | 2017-10-07 17:12 | Consultation ---
Consult Note Consult Note Hematology CONSULT note Date patient seen: Oct 07, 2017 Chief Complaint: Altered Level of Consciousness RFC: leukopenia and anemia Present Illness HPI 56 year old female with hx of MS, CVA, brought in by paramedics with CC of increased weakness and ALOC. Pt is currently awake and looks comfortable, but can't give any history. Noted to have leukopenia and heme consulted, as well has not been tested for hiv/hep here Allergies: Coded Allergies: ASPIRIN (Unverified Allergy, Unknown, 10/04/17) BACLOFEN (Unverified Allergy, Unknown, 10/04/17) PHENYTOIN (Unverified Allergy, Unknown, 10/04/17) Medication History Scheduled Amlodipine Besylate* (Amlodipine Besylate*), 10 MG ORAL DAILY, (Reported) Carbamazepine (Tegretol), 200 MG PO BID, (Reported) Duloxetine Hcl* (Cymbalta*), 60 MG ORAL DAILY, (Reported) Gabapentin (Neurontin), 900 MG ORAL THREE TIMES A DAY, (Reported) Morphine HCl (Morphine Sulfate ER), 15 MG ORAL BID, (Reported) Multivitamins* (Multivitamins*), 1 TAB ORAL DAILY, (Reported) Pantoprazole* (Pantoprazole*), 40 MG ORAL DAILY, (Reported) Psyllium Husk/Aspartame (Metamucil Fiber Singles Packet), 3.4 GM PO BID, ( Reported) Scheduled PRN Bisacodyl (Dulcolax), 10 MG RC PRN PRN for Constipation, (Reported) Calcium Carbonate (Calcium Carbonate), 1,000 MG PO Q8HR PRN for HEARTBURN, ( Reported) Hydrocodone/Acetaminophen 7.5-325* (Hydrocodon-Acetaminoph 7.5-325*), 1 TAB ORAL Q3HR PRN for Severe Pain (Pain Scale 7-10), (Reported) Hydroxypropyl Methylcellulose ([place]), 1 DROP BOTH EYES Q3HR PRN for DRY EYES, ( Reported) Ondansetron* (Zofran*), 4 MG ORAL Q4HR PRN for Nausea & Vomiting, (Reported) Patient History Healthcare decision maker Resuscitation status Full Code Advanced Directive on File Past Medical/Surgical History Past Medical/Surgical History: (1) Multiple sclerosis (2) History of CVA (cerebrovascular accident) Review of Systems All Other Systems: negative except mentioned in HPI Physical Exam General Appearance: WD/WN Lines, tubes and drains: peripheral HEENT: normocephalic, atraumatic Neck: non-tender, normal alignment Respiratory/Chest: chest wall non-tender, lungs clear Breasts: no masses Cardiovascular/Chest: normal peripheral pulses Abdomen: normal bowel sounds Genitourinary/Rectal: normal genital exam Extremities: normal range of motion Last 24 Hour Vital Signs Date Time Temp Pulse Resp B/P (MAP) Pulse Ox O2 Delivery O2 Flow Rate FiO2 10/05/17 09:53 89 135/86 10/05/17 09:00 Room Air 10/05/17 08:00 97.9 89 19 135/86 (102) 95 97.9 10/05/17 04:13 Room Air 10/05/17 04:00 77 10/05/17 04:00 97.1 82 18 141/87 (105) 95 97.1 10/05/17 03:39 83 10/05/17 03:10 98.6 78 12 109/74 97 Room Air 98.6 10/05/17 03:10 98.6 78 12 109/74 97 Room Air 209.5 10/05/17 01:14 98.6 81 12 125/74 98 Room Air 98.6 10/04/17 22:18 87 18 156/97 96 Room Air 10/04/17 22:05 97 18 156/97 96 Room Air Intake and Output 10/04/17 10/05/17 19:00 07:00 Intake Total 6 ml Output Total 500 ml Balance -494 ml Intake IV Total 6 ml Output Urine Total 500 ml # Voids 1 # Bowel Movements 1 Laboratory Tests Test 10/04/17 23:00 10/05/17 00:30 10/05/17 08:15 White Blood Count 3.5 K/UL (4.8-10.8) L 4.2 K/UL (4.8-10.8) L Red Blood Count 4.51 M/UL (4.20-5.40) 4.51 M/UL (4.20-5.40) Hemoglobin 12.1 G/DL (12.0-16.0) 12.1 G/DL (12.0-16.0) Hematocrit 36.7 % (37.0-47.0) L 37.0 % (37.0-47.0) Mean Corpuscular Volume 81 FL (80-99) 82 FL (80-99) Mean Corpuscular Hemoglobin 27.0 PG (27.0-31.0) 26.9 PG (27.0-31.0) L Mean Corpuscular Hemoglobin Concent 33.1 G/DL (32.0-36.0) 32.8 G/DL (32.0-36.0) Red Cell Distribution Width 10.9 % (11.6-14.8) L 10.8 % (11.6-14.8) L Platelet Count 176 K/UL (150-450) 224 K/UL (150-450) Mean Platelet Volume 7.6 FL (6.5-10.1) 6.4 FL (6.5-10.1) L Neutrophils (%) (Auto) 57.1 % (45.0-75.0) 67.9 % (45.0-75.0) Lymphocytes (%) (Auto) 34.6 % (20.0-45.0) 24.2 % (20.0-45.0) Monocytes (%) (Auto) 3.6 % (1.0-10.0) 5.0 % (1.0-10.0) Eosinophils (%) (Auto) 3.7 % (0.0-3.0) H 2.5 % (0.0-3.0) Basophils (%) (Auto) 1.0 % (0.0-2.0) 0.3 % (0.0-2.0) Sodium Level 138 MMOL/L (136-145) 137 MMOL/L (136-145) Potassium Level 4.2 MMOL/L (3.5-5.1) 4.0 MMOL/L (3.5-5.1) Chloride Level 103 MMOL/L (98-107) 103 MMOL/L (98-107) Carbon Dioxide Level 30 MMOL/L (21-32) 29 MMOL/L (21-32) Anion Gap 5 mmol/L (5-15) 5 mmol/L (5-15) Blood Urea Nitrogen 18 mg/dL (7-18) 17 mg/dL (7-18) Creatinine 0.5 MG/DL (0.55-1.30) L 0.5 MG/DL (0.55-1.30) L Estimat Glomerular Filtration Rate > 60 mL/min (>60) > 60 mL/min (>60) Glucose Level 111 MG/DL (74-106) H 97 MG/DL (74-106) Calcium Level 9.0 MG/DL (8.5-10.1) 9.0 MG/DL (8.5-10.1) Total Bilirubin 0.2 MG/DL (0.2-1.0) Aspartate Amino Transf (AST/SGOT) 23 U/L (15-37) Alanine Aminotransferase (ALT/SGPT) 19 U/L (12-78) Alkaline Phosphatase 118 U/L (46-116) H Pro-B-Type Natriuretic Peptide 51 pg/mL (0-125) Total Protein 7.1 G/DL (6.4-8.2) Albumin 2.9 G/DL (3.4-5.0) L Globulin 4.2 g/dL Albumin/Globulin Ratio 0.7 (1.0-2.7) L Lipase 65 U/L (73-393) L Thyroid Stimulating Hormone (TSH) 0.942 uiU/mL (0.358-3.740) Acetaminophen Level < 2 MCG/ML (10-30) L Urine Color Yellow Urine Appearance Clear Urine pH 8 (4.5-8.0) Urine Specific [place] 1.015 (1.005-1.035) Urine Protein Negative (NEGATIVE) Urine Glucose (UA) Negative (NEGATIVE) Urine Ketones Negative (NEGATIVE) Urine Occult Blood Negative (NEGATIVE) Urine Nitrite Negative (NEGATIVE) Urine Bilirubin Negative (NEGATIVE) Urine Urobilinogen 1 MG/DL (0.0-1.0) H Urine Leukocyte Esterase Negative (NEGATIVE) Urine RBC 0-2 /HPF (0 - 2) Urine WBC 0 /HPF (0 - 2) Urine Squamous Epithelial Cells Few /LPF (NONE/OCC) Urine Bacteria None /HPF (NONE) Height (Feet): 5 Height (Inches): 4.00 Weight (Pounds): 165 Medications Current Medications Medications (Trade) Dose Ordered Sig/Arnold Route PRN Reason Start Time Stop Time Status Last Admin Dose Admin Acetaminophen (Tylenol) 650 mg Q4H PRN ORAL Mild Pain/Temp > 100.5 10/05/17 09:00 11/04/17 08:59 Acetaminophen/ Hydrocodone Bitart ([place] 5/325) 1 tab Q4H PRN ORAL Severe Pain (Pain Scale 7-10) 10/05/17 09:30 10/12/17 08:59 Amlodipine Besylate (Norvasc) 10 mg DAILY ORAL 10/05/17 09:00 11/04/17 08:59 10/05/17 09:53 Artificial Tears ([place]-Tears) 1 drop Q3H PRN BOTH EYES DRY EYES 10/05/17 07:00 11/04/17 06:59 Bisacodyl (Dulcolax) 10 mg DAILY PRN RECTAL Constipation 10/05/17 06:15 11/04/17 06:14 Calcium Carbonate (Tums) 1,000 mg Q8H PRN ORAL HEARTBURN 10/05/17 06:15 11/04/17 06:14 Carbamazepine (TEGretol) 200 mg Q12HR ORAL 10/05/17 09:00 11/04/17 08:59 10/05/17 09:53 Dextrose/Sodium Chloride 1,000 ml @ 60 mls/hr [id number] IV 10/05/17 07:00 11/04/17 06:59 10/05/17 06:54 Duloxetine HCl (Cymbalta) 60 mg DAILY ORAL 10/05/17 09:00 11/04/17 08:59 10/05/17 09:53 Gabapentin (Neurontin) 900 mg THREE TIMES A DAY ORAL 10/05/17 09:00 11/04/17 08:59 10/05/17 09:52 Multivitamins (Multivitamins) 1 tab DAILY ORAL 10/05/17 09:00 11/04/17 08:59 10/05/17 09:53 Ondansetron HCl (Zofran) 4 mg Q4H PRN ORAL Nausea & Vomiting 10/05/17 06:15 11/04/17 06:14 Pantoprazole (Protonix) 40 mg DAILY ORAL 10/05/17 09:00 11/04/17 08:59 10/05/17 09:52 Psyllium Hydrophilic Mucilloid (Metamucil) 1 pkt BID ORAL 10/05/17 09:00 11/04/17 08:59 Assessment/Plan # Leukopenia unknown cause, rule out hepatitis and hiv --> ordered serology --> in addition us of abd ordered --> if wbc downtrends consider neupogen x 1 dose --> wbc can improve with steriods/demarglization # Anemia of chronic disease --> workup has been reviewed --> hold off on iron at this time # TIA/ AMS --> appreciate neuro recs # Generalized Weakness # CVA # MS Lisandro Fuller MD Oct 07, 2017 17:12
[2017-10-07 20:00] VITALS: BP 102/56
[2017-10-07] MEDS ORDERED: Norco 5mg/325mg tab ORAL SCH (20:30)
[2017-10-08] VITALS (7 sets, daily range): BP systolic 110–152; BP diastolic 53–90
[2017-10-08] MEDS: Norco 5mg/325mg tab ORAL PRN ×3 (00:39→09:02)
[2017-10-08] MEDS: D5 1/2NS 1,000 ML IV SCH ×2 (04:09→19:42)
[2017-10-08 08:03] LABS: ANION GAP 2 mmol/L (5-15); BLOOD UREA NITROGEN 6 mg/dL (7-18); CALCIUM 9.3 MG/DL (8.5-10.1); CARBON DIOXIDE 29 MMOL/L (21-32); CHLORIDE 104 MMOL/L (98-107); CREATININE 0.5 MG/DL (0.55-1.30); POTASSIUM 4.1 MMOL/L (3.5-5.1); SODIUM 135 MMOL/L (136-145)
[2017-10-08 08:08] LABS: BASOPHILS % (AUTO) 0.7 % (0.0-2.0); EOSINOPHILS % (AUTO) 0.1 % (0.0-3.0); HEMATOCRIT 37.2 % (37.0-47.0); HEMOGLOBIN 12.2 G/DL (12.0-16.0); LYMPHOCYTES % (AUTO) 17.9 % (20.0-45.0); MEAN CORPUSCULAR VOLUME 82 FL (80-99); MONOCYTES % (AUTO) 5.2 % (1.0-10.0); NEUTROPHILS % (AUTO) 76.1 % (45.0-75.0); PLATELET COUNT 199 K/UL (150-450); RED BLOOD COUNT 4.56 M/UL (4.20-5.40); RED CELL DISTRIBUTION WIDTH 10.8 % (11.6-14.8); WHITE BLOOD COUNT 6.8 K/UL (4.8-10.8)
[2017-10-08] MEDS: carBAMazepine 200mg tab ORAL SCH ×2 (08:50→20:19)
[2017-10-08] MEDS: DULoxetine 30mg cap ORAL SCH (08:50)
[2017-10-08] MEDS: Metamucil Pkt ORAL SCH ×2 (08:51→17:28)
[2017-10-08] MEDS: Heparin 5000 units/ml inj SUBQ SCH ×2 (08:58→20:22)
[2017-10-08] MEDS: methylPREDNISolone Sod Succ 1,000 MG in NS 275 ML IVPB SCH (09:02)
--- NOTE | 2017-10-08 09:03 | General Progress Note ---
Assessment/Plan Problem List: (1) Chronic pain ICD Codes: G89.29 - Other chronic pain SNOMED: 83780107 (2) Altered level of consciousness ICD Codes: R40.4 - Transient alteration of awareness SNOMED: 3495227 (3) Multiple sclerosis ICD Codes: G35 - Multiple sclerosis SNOMED: 10086121 (4) History of CVA (cerebrovascular accident) ICD Codes: Z86.73 - Personal history of transient ischemic attack (TIA), and cerebral infarction without residual deficits SNOMED: 764190184 (5) Generalized weakness ICD Codes: R53.1 - Weakness SNOMED: 31694521 (6) HTN (hypertension) ICD Codes: I10 - Essential (primary) hypertension SNOMED: 61562761 (7) Leukopenia ICD Codes: D72.819 - Decreased white blood cell count, unspecified SNOMED: 78994968, 310892894 Status: stable, progressing Assessment/Plan ot pt diet pain control cbc bmp am dc plan snf Subjective Constitutional: Reports: weakness Allergies: Coded Allergies: ASPIRIN (Unverified Allergy, Unknown, 10/04/17) BACLOFEN (Unverified Allergy, Unknown, 10/04/17) PHENYTOIN (Unverified Allergy, Unknown, 10/04/17) All Systems: reviewed and negative except above Subjective calm in bed Objective Last 24 Hour Vital Signs Date Time Temp Pulse Resp B/P (MAP) Pulse Ox O2 Delivery O2 Flow Rate FiO2 10/08/17 08:51 74 156/86 10/08/17 08:09 Room Air 10/08/17 08:00 97.9 74 18 152/86 (108) 97 97.9 10/08/17 04:00 97.6 77 18 147/90 (109) 100 97.6 10/08/17 00:00 98.4 72 18 116/64 (81) 97 98.4 10/07/17 21:00 Room Air 10/07/17 20:00 97.9 77 18 102/56 (71) 95 97.9 10/07/17 16:00 97.6 92 18 121/74 (90) 99 97.6 10/07/17 12:00 97.0 100 18 134/74 (94) 99 97.0 Intake and Output 10/07/17 10/08/17 19:00 07:00 Intake Total 845 ml 860 ml Balance 845 ml 860 ml Intake Oral 450 ml 200 ml IV Total 395 ml 660 ml # Voids 2 Laboratory Tests 10/07/17 18:19: Hepatitis A IgM Antibody [Pending], Hepatitis B Surface Antigen [Pending], Hepatitis B Core IgM Antibody [Pending], Hepatitis C Antibody [Pending], HIV (1& 2) Antibody Rapid Negative 10/08/17 07:22: White Blood Count 6.8#, Red Blood Count 4.56, Hemoglobin 12.2, Hematocrit 37.2, Mean Corpuscular Volume 82, Mean Corpuscular Hemoglobin 26.8L, Mean Corpuscular Hemoglobin Concent 32.9, Red Cell Distribution Width 10.8L, Platelet Count 199, Mean Platelet Volume 6.2L, Neutrophils (%) (Auto) 76.1H, Lymphocytes (%) (Auto) 17.9L, Monocytes (%) (Auto) 5.2, Eosinophils (%) (Auto) 0.1, Basophils (%) (Auto ) 0.7, Sodium Level 135L, Potassium Level 4.1, Chloride Level 104, Carbon Dioxide Level 29, Anion Gap 2L, Blood Urea Nitrogen 6L, Creatinine 0.5L, Estimat Glomerular Filtration Rate > 60, Glucose Level 106, Calcium Level 9.3 Height (Feet): 5 Height (Inches): 4.00 Weight (Pounds): 165 General Appearance: lethargic EENT: normal ENT inspection Neck: normal alignment Cardiovascular: normal peripheral pulses, normal rate, regular rhythm Respiratory/Chest: chest wall non-tender, lungs clear, normal breath sounds Abdomen: normal bowel sounds, non tender, soft Extremities: normal inspection Edema: no edema noted Arm (L), no edema noted Arm (R), no edema noted Leg (L), no edema noted Leg (R), no edema noted Pedal (L), no edema noted Pedal (R), no edema noted Generalized Neurologic: responsive, motor weakness Skin: normal pigmentation, warm/dry He Orta DO Oct 08, 2017 09:03
--- NOTE | 2017-10-08 09:21 | General Progress Note ---
Assessment/Plan Assessment/Plan (1) Multiple sclerosis (2) Neuropathic pain (3) Altered mental status Patient will be continued on [place] as needed. D/w Dr. Oreilly and he concurred. Subjective Date patient seen: Oct 08, 2017 Time patient seen: 08:15 - am Allergies: Coded Allergies: ASPIRIN (Unverified Allergy, Unknown, 10/04/17) BACLOFEN (Unverified Allergy, Unknown, 10/04/17) PHENYTOIN (Unverified Allergy, Unknown, 10/04/17) Subjective REVIEW OF SYSTEMS: Denies rash, fever, chills, sweating, dizziness, drowsiness, blurred vision, sore throat, change in weight. No shortness of breath or chest pain. No nausea, vomiting, or blood in the stool or urine. No bowel or bladder incontinence. She complains of general body pain. SUBJECTIVE: Patient reports that her pain has been tolerated on the [place] but is requesting more opioids. I d/w patient about opioid use and the effects it can cause. She understands. MRI reviewed as per Neurologist. Objective Last 24 Hour Vital Signs Date Time Temp Pulse Resp B/P (MAP) Pulse Ox O2 Delivery O2 Flow Rate FiO2 10/08/17 09:02 97.9 10/08/17 08:51 74 156/86 10/08/17 08:09 Room Air 10/08/17 08:00 97.9 74 18 152/86 (108) 97 97.9 10/08/17 04:00 97.6 77 18 147/90 (109) 100 97.6 10/08/17 00:00 98.4 72 18 116/64 (81) 97 98.4 10/07/17 21:00 Room Air 10/07/17 20:00 97.9 77 18 102/56 (71) 95 97.9 10/07/17 16:00 97.6 92 18 121/74 (90) 99 97.6 10/07/17 12:00 97.0 100 18 134/74 (94) 99 97.0 Intake and Output 10/07/17 10/08/17 19:00 07:00 Intake Total 845 ml 860 ml Balance 845 ml 860 ml Intake Oral 450 ml 200 ml IV Total 395 ml 660 ml # Voids 2 Laboratory Tests 10/07/17 18:19: Hepatitis A IgM Antibody [Pending], Hepatitis B Surface Antigen [Pending], Hepatitis B Core IgM Antibody [Pending], Hepatitis C Antibody [Pending], HIV (1& 2) Antibody Rapid Negative 10/08/17 07:22: White Blood Count 6.8#, Red Blood Count 4.56, Hemoglobin 12.2, Hematocrit 37.2, Mean Corpuscular Volume 82, Mean Corpuscular Hemoglobin 26.8L, Mean Corpuscular Hemoglobin Concent 32.9, Red Cell Distribution Width 10.8L, Platelet Count 199, Mean Platelet Volume 6.2L, Neutrophils (%) (Auto) 76.1H, Lymphocytes (%) (Auto) 17.9L, Monocytes (%) (Auto) 5.2, Eosinophils (%) (Auto) 0.1, Basophils (%) (Auto ) 0.7, Sodium Level 135L, Potassium Level 4.1, Chloride Level 104, Carbon Dioxide Level 29, Anion Gap 2L, Blood Urea Nitrogen 6L, Creatinine 0.5L, Estimat Glomerular Filtration Rate > 60, Glucose Level 106, Calcium Level 9.3 Height (Feet): 5 Height (Inches): 4.00 Weight (Pounds): 165 Objective GENERAL: Alert, awake, and oriented. LUNGS: Decreased breath sounds bilaterally. HEART: S1 and S2, regular. ABDOMEN: Benign. EXTREMITIES: No cyanosis. No clubbing. NEUROLOGIC: No changes. Eddi Valentin Oct 08, 2017 09:21
--- NOTE | 2017-10-08 09:41 | General Progress Note ---
Assessment/Plan Status: stable Assessment/Plan # Leukopenia unknown cause. WBC trending upwards, at 6.8, wnl. --> hepatitis panel PENDING and HIV negative. --> in addition us of abd ordered. PENDING --> if wbc downtrends consider neupogen x 1 dose --> wbc can improve with steriods/demarglization. # Anemia of chronic disease. Stable, Hgb at 12.2 --> Workup has been reviewed. --> hold off on iron at this time # TIA/ AMS --> appreciate neuro recs # Generalized Weakness # CVA # MS The time the note was entered does not necessarily correspond to the time the patient was seen. Subjective Date patient seen: Oct 08, 2017 ROS Limited/Unobtainable: Yes Hematologic/Lymphatic: Reports: anemia Allergies: Coded Allergies: ASPIRIN (Unverified Allergy, Unknown, 10/04/17) BACLOFEN (Unverified Allergy, Unknown, 10/04/17) PHENYTOIN (Unverified Allergy, Unknown, 10/04/17) All Systems: reviewed and negative except above Subjective MRI brain: negative for acute intracranial bleed or mass effect. WBC trending upwards, at 6.8, wnl. No acute events. Objective Last 24 Hour Vital Signs Date Time Temp Pulse Resp B/P (MAP) Pulse Ox O2 Delivery O2 Flow Rate FiO2 10/08/17 09:02 97.9 10/08/17 08:51 74 156/86 10/08/17 08:09 Room Air 10/08/17 08:00 97.9 74 18 152/86 (108) 97 97.9 10/08/17 04:00 97.6 77 18 147/90 (109) 100 97.6 10/08/17 00:00 98.4 72 18 116/64 (81) 97 98.4 10/07/17 21:00 Room Air 10/07/17 20:00 97.9 77 18 102/56 (71) 95 97.9 10/07/17 16:00 97.6 92 18 121/74 (90) 99 97.6 10/07/17 12:00 97.0 100 18 134/74 (94) 99 97.0 Intake and Output 10/07/17 10/08/17 19:00 07:00 Intake Total 845 ml 860 ml Balance 845 ml 860 ml Intake Oral 450 ml 200 ml IV Total 395 ml 660 ml # Voids 2 Laboratory Tests 10/07/17 18:19: Hepatitis A IgM Antibody [Pending], Hepatitis B Surface Antigen [Pending], Hepatitis B Core IgM Antibody [Pending], Hepatitis C Antibody [Pending], HIV (1& 2) Antibody Rapid Negative 10/08/17 07:22: White Blood Count 6.8#, Red Blood Count 4.56, Hemoglobin 12.2, Hematocrit 37.2, Mean Corpuscular Volume 82, Mean Corpuscular Hemoglobin 26.8L, Mean Corpuscular Hemoglobin Concent 32.9, Red Cell Distribution Width 10.8L, Platelet Count 199, Mean Platelet Volume 6.2L, Neutrophils (%) (Auto) 76.1H, Lymphocytes (%) (Auto) 17.9L, Monocytes (%) (Auto) 5.2, Eosinophils (%) (Auto) 0.1, Basophils (%) (Auto ) 0.7, Sodium Level 135L, Potassium Level 4.1, Chloride Level 104, Carbon Dioxide Level 29, Anion Gap 2L, Blood Urea Nitrogen 6L, Creatinine 0.5L, Estimat Glomerular Filtration Rate > 60, Glucose Level 106, Calcium Level 9.3 Height (Feet): 5 Height (Inches): 4.00 Weight (Pounds): 165 General Appearance: no apparent distress EENT: PERRL/EOMI Neck: normal alignment Cardiovascular: normal peripheral pulses Respiratory/Chest: no respiratory distress Abdomen: soft Lisandro Fuller MD Oct 08, 2017 09:41
[2017-10-08] MEDS ORDERED: D5 1/2NS 1000ml IV ONE (10:24)
--- NOTE | 2017-10-08 12:35 | Neurology Progress Note ---
Interim History Interim History Interim History Ms. Gayle continues to feel better. She has tolerated the Solumedrol well. She feels a little stronger today. Her right had is getting stronger. She was able to partially feed herself today. She denies any other new neurologic symptoms. Review of Systems Neuro Review of Systems Benign. Objective Physical Exam Last Vital Signs Date Time Temp Pulse Resp B/P (MAP) Pulse Ox O2 Delivery O2 Flow Rate FiO2 10/08/17 12:00 96.9 89 20 120/73 (89) 100 96.9 10/08/17 08:09 Room Air Laboratory Tests Test 10/07/17 18:19 10/08/17 07:22 Hepatitis A IgM Antibody Pending Hepatitis B Surface Antigen Pending Hepatitis B Core IgM Antibody Pending Hepatitis C Antibody Pending HIV (1&2) Antibody Rapid Negative (NEGATIVE) White Blood Count 6.8 K/UL (4.8-10.8) # Red Blood Count 4.56 M/UL (4.20-5.40) Hemoglobin 12.2 G/DL (12.0-16.0) Hematocrit 37.2 % (37.0-47.0) Mean Corpuscular Volume 82 FL (80-99) Mean Corpuscular Hemoglobin 26.8 PG (27.0-31.0) L Mean Corpuscular Hemoglobin Concent 32.9 G/DL (32.0-36.0) Red Cell Distribution Width 10.8 % (11.6-14.8) L Platelet Count 199 K/UL (150-450) Mean Platelet Volume 6.2 FL (6.5-10.1) L Neutrophils (%) (Auto) 76.1 % (45.0-75.0) H Lymphocytes (%) (Auto) 17.9 % (20.0-45.0) L Monocytes (%) (Auto) 5.2 % (1.0-10.0) Eosinophils (%) (Auto) 0.1 % (0.0-3.0) Basophils (%) (Auto) 0.7 % (0.0-2.0) Sodium Level 135 MMOL/L (136-145) L Potassium Level 4.1 MMOL/L (3.5-5.1) Chloride Level 104 MMOL/L (98-107) Carbon Dioxide Level 29 MMOL/L (21-32) Anion Gap 2 mmol/L (5-15) L Blood Urea Nitrogen 6 mg/dL (7-18) L Creatinine 0.5 MG/DL (0.55-1.30) L Estimat Glomerular Filtration Rate > 60 mL/min (>60) Glucose Level 106 MG/DL (74-106) Calcium Level 9.3 MG/DL (8.5-10.1) Neurologic Exam Objective PHYSICAL EXAMINATION: GENERAL: She is a well-developed, well-nourished, black lady, lying in bed, in no acute distress. HEAD: Normocephalic and atraumatic. NECK: No neck rigidity was observed. EENT: Examination benign. NEUROLOGIC EXAMINATION: MENTAL STATUS EXAMINATION: She was awake and alert. She was oriented to [facility], [facility] and October 08, 2017. She was able to recall 3/3 words immediately, but could only remember 2/3 words in 1 minute and 3 minutes. She was able to remember presidents, Trump and Obama, but could not remember presidents prior to that. Her mathematical skills were impaired. Her visuospatial function was also impaired. SPEECH: She had a mild dysarthria. LANGUAGE: She had anomia for low-frequency words. CRANIAL NERVE EXAMINATION: II: The visual everett were intact on confrontation testing. III, IV & : The external ocular movements were full and the pupils 3 mm in diameter, equal, round, regular, and reactive sluggishly to light. V: She had normal facial sensations and the temporales, masseters, and pterygoids functioned normally. VII: She had left seventh central facial paresis. VIII: She was able to hear well and had no nystagmus. IX: The palate moved symmetrically on phonation. X: She had no hoarseness of voice. XI: The sternocleidomastoids and trapezii functioned normally. XII: The tongue was in the midline without any fasciculations or atrophy. MOTOR SYSTEM: The tone was increased in all four extremities with a significant degree of spasticity involving the lower extremities more than the upper extremities and the left side more than the right side. Examination of muscle mass revealed significant wasting predominantly of the lower extremities and the left more than right upper extremity. Examination of power revealed G 0/5 power in both lower extremities, G 2/5 power in the left upper extremity and G 4/5 power in the right upper extremity except for G 4++/5 in the right finger flexors. SENSORY EXAMINATION: She was able to discern between pinprick and light touch over her entire body. REFLEXES: 1+ on the left and trace+ on the right at the biceps, triceps, and brachioradialis. 0 at both knees. 4+ at both ankles. The plantar responses were mute bilaterally. COORDINATION, STANCE & GAIT: Could not be tested. Impression/Recommendations Diagnostic Impression 1. Ms. Arabella Gayle is a 56-year-old, right-handed, black lady with a long history of multiple sclerosis, which in the past was treated with Avonex and Copaxone, but has not been treated with any disease modifying agent for numerous years. She also has a history of left trigeminal neuralgia and significant debility related to her multiple sclerosis. She is now living in a chcf, dependent on all her activities of daily living. She was hospitalized with increased generalized weakness and an alteration in mental state. 2. She continues to feel better. She has tolerated the Solumedrol well. She feels a little stronger today. Her right had is getting stronger. She was able to partially feed herself today. She denies any other new neurologic symptoms. 3. On neurological examination, she does exhibit problems with recent and remote memory, visuospatial function, higher cognitive function, and language. She also has left seventh central facial paresis, a spastic paraplegia, left greater than right upper extremity paresis - with a definite increase in power in the right hand, relatively normal sensations, loss of deep tendon reflexes at the knees with clonus at the ankles with loss of plantar responses and diminished deep tendon reflexes in the upper extremities with the left side slightly brisker than the right. 4. The CT scan of the brain without contrast reveals multiple deep white matter lesions, but no acute pathology. 5. The MRI of the brain done on 10/06/17 revealed: Fairly extensive periventricular deep white matter signal abnormality which is typical of multiple sclerosis. Foci of abnormal diffusion signal in the right parietal deep white matter and left hayden radiata are consistent with active demyelination. 6. Laboratory data thus far reveal a relatively normal CBC, a relatively normal chemistry panel and benign urinalysis. 7. Further laboratory data have revealed no treatable cause of cognitive decline. 8. The patient's history, neurological examination, laboratory data and imaging studies are most compatible with an acute exacerbation of her multiple sclerosis with active right parietal deep white matter and left hayden radiata lesions. 9. She is definitely stronger in her right hand and could feed herself today following Solumedrol infusions. Recommendations 1. Continue present management. 2. Finish 3-day course of Solu-Medrol 1 G intravenously. 3. Increase activity as tolerated. Seng Middleton M.D., M.S.P.H. SENG MIDDLETON Oct 08, 2017 12:35
--- NOTE | 2017-10-08 13:56 | Pulmonology Progress Note ---
Assessment/Plan Problems: (1) Altered level of consciousness (2) Generalized weakness (3) Multiple sclerosis (4) History of CVA (cerebrovascular accident) Assessment/Plan doing better symptomatic treatment dvt prophylaxis eats with assistance Subjective ROS Limited/Unobtainable: No Constitutional: Reports: no symptoms HEENT: Repors: no symptoms Respiratory: Reports: no symptoms Allergies: Coded Allergies: ASPIRIN (Unverified Allergy, Unknown, 10/04/17) BACLOFEN (Unverified Allergy, Unknown, 10/04/17) PHENYTOIN (Unverified Allergy, Unknown, 10/04/17) Objective Last 24 Hour Vital Signs Date Time Temp Pulse Resp B/P (MAP) Pulse Ox O2 Delivery O2 Flow Rate FiO2 10/08/17 12:00 96.9 89 20 120/73 (89) 100 96.9 10/08/17 10:01 97.9 10/08/17 09:02 97.9 10/08/17 08:51 74 156/86 10/08/17 08:09 Room Air 10/08/17 08:00 97.9 74 18 152/86 (108) 97 97.9 10/08/17 04:00 97.6 77 18 147/90 (109) 100 97.6 10/08/17 00:00 98.4 72 18 116/64 (81) 97 98.4 10/07/17 21:00 Room Air 10/07/17 20:00 97.9 77 18 102/56 (71) 95 97.9 10/07/17 16:00 97.6 92 18 121/74 (90) 99 97.6 Intake and Output 10/07/17 10/08/17 19:00 07:00 Intake Total 845 ml 860 ml Balance 845 ml 860 ml Intake Oral 450 ml 200 ml IV Total 395 ml 660 ml # Voids 2 General Appearance: WD/WN HEENT: normocephalic, atraumatic Respiratory/Chest: chest wall non-tender, lungs clear Breasts: no masses Cardiovascular: normal peripheral pulses, regularly irregular Abdomen: soft, non tender Extremities: no cyanosis Skin: no rash Laboratory Tests 10/07/17 18:19: Hepatitis A IgM Antibody [Pending], Hepatitis B Surface Antigen [Pending], Hepatitis B Core IgM Antibody [Pending], Hepatitis C Antibody [Pending], HIV (1& 2) Antibody Rapid Negative 10/08/17 07:22: White Blood Count 6.8#, Red Blood Count 4.56, Hemoglobin 12.2, Hematocrit 37.2, Mean Corpuscular Volume 82, Mean Corpuscular Hemoglobin 26.8L, Mean Corpuscular Hemoglobin Concent 32.9, Red Cell Distribution Width 10.8L, Platelet Count 199, Mean Platelet Volume 6.2L, Neutrophils (%) (Auto) 76.1H, Lymphocytes (%) (Auto) 17.9L, Monocytes (%) (Auto) 5.2, Eosinophils (%) (Auto) 0.1, Basophils (%) (Auto ) 0.7, Sodium Level 135L, Potassium Level 4.1, Chloride Level 104, Carbon Dioxide Level 29, Anion Gap 2L, Blood Urea Nitrogen 6L, Creatinine 0.5L, Estimat Glomerular Filtration Rate > 60, Glucose Level 106, Calcium Level 9.3 Current Medications Medications (Trade) Dose Ordered Sig/Arnold Route PRN Reason Start Time Stop Time Status Last Admin Dose Admin Acetaminophen (Tylenol) 650 mg Q4H PRN ORAL Mild Pain/Temp > 100.5 10/05/17 18:00 11/04/17 17:59 10/07/17 05:42 Acetaminophen/ Hydrocodone Bitart ([place] 5/325) 1 tab Q4H PRN ORAL Severe Pain (Pain Scale 7-10) 10/05/17 18:00 10/12/17 17:59 10/08/17 09:02 Amlodipine Besylate (Norvasc) 10 mg DAILY ORAL 10/06/17 09:00 11/04/17 08:59 10/08/17 08:51 Artificial Tears (Akwa-Tears) 1 drop Q3H PRN BOTH EYES DRY EYES 10/05/17 19:00 11/04/17 06:59 Bisacodyl (Dulcolax) 10 mg DAILY PRN RECTAL Constipation 10/06/17 09:00 11/04/17 06:14 Calcium Carbonate (Tums) 1,000 mg Q8H PRN ORAL HEARTBURN 10/05/17 18:00 11/04/17 17:59 Carbamazepine (TEGretol) 200 mg Q12HR ORAL 10/05/17 21:00 11/04/17 08:59 10/08/17 08:50 Dextrose/Sodium Chloride 1,000 ml @ 60 mls/hr [id number] IV 10/05/17 18:00 11/04/17 06:59 10/08/17 04:09 Duloxetine HCl (Cymbalta) 60 mg DAILY ORAL 10/06/17 09:00 11/04/17 08:59 10/08/17 08:50 Gabapentin (Neurontin) 900 mg THREE TIMES A DAY ORAL 10/05/17 18:00 11/04/17 08:59 10/08/17 12:35 Gadobutrol (Gadavist) 7.5 mmol NOW PRN IV Radiology Procedure 10/05/17 20:15 10/09/17 20:11 Heparin Sodium (Porcine) (Heparin 5000 units/ml) 5,000 units EVERY 12 HOURS SUBQ 10/05/17 21:00 11/04/17 20:59 10/08/17 08:58 Multivitamins (Multivitamins) 1 tab DAILY ORAL 10/06/17 09:00 11/04/17 08:59 10/08/17 08:50 Ondansetron HCl (Zofran) 4 mg Q4H PRN ORAL Nausea & Vomiting 10/05/17 18:15 11/04/17 06:14 10/08/17 04:41 Pantoprazole (Protonix) 40 mg DAILY ORAL 10/06/17 09:00 11/04/17 08:59 10/08/17 08:51 Psyllium Hydrophilic Mucilloid (Metamucil) 1 pkt BID ORAL 10/05/17 18:00 11/04/17 08:59 10/08/17 08:51 Ambrocio Poole MD Oct 08, 2017 13:56
[2017-10-09 05:52] VITALS: BP 145/96
[2017-10-09 07:23] LABS: BASOPHILS % (AUTO) 0.6 % (0.0-2.0); HEMATOCRIT 38.3 % (37.0-47.0); HEMOGLOBIN 12.5 G/DL (12.0-16.0); LYMPHOCYTES % (AUTO) 18.8 % (20.0-45.0); MEAN CORPUSCULAR VOLUME 82 FL (80-99); MONOCYTES % (AUTO) 4.9 % (1.0-10.0); NEUTROPHILS % (AUTO) 75.6 % (45.0-75.0); PLATELET COUNT 231 K/UL (150-450); RED BLOOD COUNT 4.68 M/UL (4.20-5.40); RED CELL DISTRIBUTION WIDTH 11.1 % (11.6-14.8); WHITE BLOOD COUNT 6.1 K/UL (4.8-10.8)
--- NOTE | 2017-10-09 07:36 | General Progress Note ---
Assessment/Plan Assessment/Plan (1) Multiple sclerosis (2) Neuropathic pain (3) Altered mental status Patient will be continued on [place] as needed. We will d/c Neurontin and start Lyrica 100mg PO 1 cap TID. D/w Dr. Oreilly and he concurred. Subjective Date patient seen: Oct 09, 2017 Time patient seen: 07:00 - am Allergies: Coded Allergies: ASPIRIN (Unverified Allergy, Unknown, 10/04/17) BACLOFEN (Unverified Allergy, Unknown, 10/04/17) PHENYTOIN (Unverified Allergy, Unknown, 10/04/17) Subjective REVIEW OF SYSTEMS: Denies rash, fever, chills, sweating, dizziness, drowsiness, blurred vision, sore throat, change in weight. No shortness of breath or chest pain. No nausea, vomiting, or blood in the stool or urine. No bowel or bladder incontinence. She complains of general body pain. SUBJECTIVE: Patient is in bed and reports continued pain. [place] has helped. However continues to c/o burning pain. I d/w her about changing the Neurontin to Lyrica and she understands. Objective Last 24 Hour Vital Signs Date Time Temp Pulse Resp B/P (MAP) Pulse Ox O2 Delivery O2 Flow Rate FiO2 10/09/17 05:52 98.4 82 18 145/96 (112) 97 98.4 10/08/17 21:00 Room Air 10/08/17 20:00 98.4 84 18 133/81 (98) 96 98.4 10/08/17 18:27 97.3 10/08/17 17:28 97.3 10/08/17 15:57 97.3 92 20 136/76 (96) 98 97.3 10/08/17 12:00 96.9 89 20 120/73 (89) 100 96.9 10/08/17 10:01 97.9 10/08/17 09:02 97.9 10/08/17 08:51 74 156/86 10/08/17 08:09 Room Air 10/08/17 08:00 97.9 74 18 152/86 (108) 97 97.9 Intake and Output 10/08/17 10/09/17 19:00 07:00 Intake Total 1535 ml 760 ml Output Total 300 ml Balance 1535 ml 460 ml Intake Oral 540 ml 100 ml IV Total 995 ml 660 ml Output Urine Total 300 ml # Voids 3 2 Laboratory Tests 10/09/17 06:45: White Blood Count 6.1, Red Blood Count 4.68, Hemoglobin 12.5, Hematocrit 38.3, Mean Corpuscular Volume 82, Mean Corpuscular Hemoglobin 26.7L, Mean Corpuscular Hemoglobin Concent 32.6, Red Cell Distribution Width 11.1L, Platelet Count 231, Mean Platelet Volume 6.3L, Neutrophils (%) (Auto) 75.6H, Lymphocytes (%) (Auto) 18.8L, Monocytes (%) (Auto) 4.9, Eosinophils (%) (Auto) 0.0, Basophils (%) (Auto ) 0.6, Sodium Level [Pending], Potassium Level [Pending], Chloride Level [ Pending], Carbon Dioxide Level [Pending], Blood Urea Nitrogen [Pending], Creatinine [Pending], Estimat Glomerular Filtration Rate [Pending], Glucose Level [Pending], Calcium Level [Pending] Height (Feet): 5 Height (Inches): 4.00 Weight (Pounds): 165 Objective GENERAL: Alert, awake, and oriented. LUNGS: Decreased breath sounds bilaterally. HEART: S1 and S2, regular. ABDOMEN: Benign. EXTREMITIES: No cyanosis. No clubbing. NEUROLOGIC: No changes. Eddi Valentin Oct 09, 2017 07:36
[2017-10-09 07:46] LABS: ANION GAP 8 mmol/L (5-15); BLOOD UREA NITROGEN 6 mg/dL (7-18); CALCIUM 9.1 MG/DL (8.5-10.1); CARBON DIOXIDE 30 MMOL/L (21-32); CHLORIDE 103 MMOL/L (98-107); CREATININE 0.6 MG/DL (0.55-1.30); SODIUM 141 MMOL/L (136-145)
[2017-10-09 08:00] VITALS: BP 158/96
[2017-10-09] MEDS: DULoxetine 30mg cap ORAL SCH (08:54)
[2017-10-09] MEDS: Metamucil Pkt ORAL SCH ×2 (08:55→17:14)
[2017-10-09] MEDS: Lyrica 50mg cap ORAL SCH ×3 (08:55→17:10)
[2017-10-09] MEDS: carBAMazepine 200mg tab ORAL SCH (08:56)
[2017-10-09] MEDS: Heparin 5000 units/ml inj SUBQ SCH (08:58)
--- NOTE | 2017-10-09 10:06 | General Progress Note ---
Assessment/Plan Status: stable Assessment/Plan # Leukopenia unknown cause. WBC trending upwards, at 6.1, wnl. --> hepatitis panel PENDING and HIV negative. --> in addition us of abd ordered. PENDING --> if wbc downtrends consider neupogen x 1 dose --> wbc can improve with steriods/demarglization. # Anemia of chronic disease. STABLE, Hgb at 12.5 --> Workup has been reviewed. --> hold off on iron at this time # TIA/ AMS --> appreciate neuro recs # Generalized Weakness # CVA # MS The time the note was entered does not necessarily correspond to the time the patient was seen. Subjective Date patient seen: Oct 09, 2017 ROS Limited/Unobtainable: Yes Hematologic/Lymphatic: Reports: anemia Allergies: Coded Allergies: ASPIRIN (Unverified Allergy, Unknown, 10/04/17) BACLOFEN (Unverified Allergy, Unknown, 10/04/17) PHENYTOIN (Unverified Allergy, Unknown, 10/04/17) All Systems: reviewed and negative except above Subjective Pt awake and alert. No acute events. H/H stable. Objective Last 24 Hour Vital Signs Date Time Temp Pulse Resp B/P (MAP) Pulse Ox O2 Delivery O2 Flow Rate FiO2 10/09/17 09:29 Room Air 10/09/17 08:56 81 158/96 10/09/17 08:00 97.6 81 20 158/96 (116) 97 97.6 10/09/17 05:52 98.4 82 18 145/96 (112) 97 98.4 10/08/17 21:00 Room Air 10/08/17 20:00 98.4 84 18 133/81 (98) 96 98.4 10/08/17 18:27 97.3 10/08/17 17:28 97.3 10/08/17 15:57 97.3 92 20 136/76 (96) 98 97.3 10/08/17 12:00 96.9 89 20 120/73 (89) 100 96.9 Intake and Output 10/08/17 10/09/17 19:00 07:00 Intake Total 1535 ml 760 ml Output Total 300 ml Balance 1535 ml 460 ml Intake Oral 540 ml 100 ml IV Total 995 ml 660 ml Output Urine Total 300 ml # Voids 3 2 Laboratory Tests 8/13/18 06:45: White Blood Count 6.1, Red Blood Count 4.68, Hemoglobin 12.5, Hematocrit 38.3, Mean Corpuscular Volume 82, Mean Corpuscular Hemoglobin 26.7L, Mean Corpuscular Hemoglobin Concent 32.6, Red Cell Distribution Width 11.1L, Platelet Count 231, Mean Platelet Volume 6.3L, Neutrophils (%) (Auto) 75.6H, Lymphocytes (%) (Auto) 18.8L, Monocytes (%) (Auto) 4.9, Eosinophils (%) (Auto) 0.0, Basophils (%) (Auto ) 0.6, Sodium Level 141, Potassium Level 4.0, Chloride Level 103, Carbon Dioxide Level 30, Anion Gap 8, Blood Urea Nitrogen 6L, Creatinine 0.6, Estimat Glomerular Filtration Rate > 60, Glucose Level 106, Calcium Level 9.1 Height (Feet): 5 Height (Inches): 4.00 Weight (Pounds): 165 General Appearance: no apparent distress EENT: PERRL/EOMI Neck: normal alignment Cardiovascular: normal peripheral pulses, irregularly irregular Respiratory/Chest: no respiratory distress Abdomen: soft Lisandro Fuller MD Oct 09, 2017 10:06
--- NOTE | 2017-10-09 11:11 | Neurology Progress Note ---
Interim History Interim History Interim History Ms. Gayle continues to feel better generally. She has tolerated the Solumedrol well and has finished 3 doses. She feels a little stronger in the right hand. She has been able to partially feed herself. Her trigeminal discomfort is a little worse. She is also more depressed and hopeless due to her chronic illness. She denies any other new neurologic symptoms. Review of Systems Neuro Review of Systems Benign. Objective Physical Exam Last Vital Signs Date Time Temp Pulse Resp B/P (MAP) Pulse Ox O2 Delivery O2 Flow Rate FiO2 10/09/17 09:29 Room Air 10/09/17 08:56 81 158/96 10/09/17 08:00 97.6 20 97 97.6 Laboratory Tests Test 10/09/17 06:45 White Blood Count 6.1 K/UL (4.8-10.8) Red Blood Count 4.68 M/UL (4.20-5.40) Hemoglobin 12.5 G/DL (12.0-16.0) Hematocrit 38.3 % (37.0-47.0) Mean Corpuscular Volume 82 FL (80-99) Mean Corpuscular Hemoglobin 26.7 PG (27.0-31.0) L Mean Corpuscular Hemoglobin Concent 32.6 G/DL (32.0-36.0) Red Cell Distribution Width 11.1 % (11.6-14.8) L Platelet Count 231 K/UL (150-450) Mean Platelet Volume 6.3 FL (6.5-10.1) L Neutrophils (%) (Auto) 75.6 % (45.0-75.0) H Lymphocytes (%) (Auto) 18.8 % (20.0-45.0) L Monocytes (%) (Auto) 4.9 % (1.0-10.0) Eosinophils (%) (Auto) 0.0 % (0.0-3.0) Basophils (%) (Auto) 0.6 % (0.0-2.0) Sodium Level 141 MMOL/L (136-145) Potassium Level 4.0 MMOL/L (3.5-5.1) Chloride Level 103 MMOL/L (98-107) Carbon Dioxide Level 30 MMOL/L (21-32) Anion Gap 8 mmol/L (5-15) Blood Urea Nitrogen 6 mg/dL (7-18) L Creatinine 0.6 MG/DL (0.55-1.30) Estimat Glomerular Filtration Rate > 60 mL/min (>60) Glucose Level 106 MG/DL (74-106) Calcium Level 9.1 MG/DL (8.5-10.1) Neurologic Exam Objective PHYSICAL EXAMINATION: GENERAL: She is a well-developed, well-nourished, black lady, lying in bed, in no acute distress. HEAD: Normocephalic and atraumatic. NECK: No neck rigidity was observed. EENT: Examination benign. NEUROLOGIC EXAMINATION: MENTAL STATUS EXAMINATION: She was awake and alert. She was oriented to self, [facility] and October 09, 2017. She was able to recall 3/3 words immediately, but could only remember 2/3 words in 1 minute and 3 minutes. She was able to remember presidents, Trump and Obama, but could not remember presidents prior to that. Her mathematical skills were impaired. Her visuospatial function was also impaired. SPEECH: She had a mild dysarthria. LANGUAGE: She had anomia for low-frequency words. CRANIAL NERVE EXAMINATION: II: The visual everett were intact on confrontation testing. III, IV & : The external ocular movements were full and the pupils 3 mm in diameter, equal, round, regular, and reactive sluggishly to light. V: She had normal facial sensations and the temporales, masseters, and pterygoids functioned normally. VII: She had left seventh central facial paresis. VIII: She was able to hear well and had no nystagmus. IX: The palate moved symmetrically on phonation. X: She had no hoarseness of voice. XI: The sternocleidomastoids and trapezii functioned normally. XII: The tongue was in the midline without any fasciculations or atrophy. MOTOR SYSTEM: The tone was increased in all four extremities with a significant degree of spasticity involving the lower extremities more than the upper extremities and the left side more than the right side. Examination of muscle mass revealed significant wasting predominantly of the lower extremities and the left more than right upper extremity. Examination of power revealed G 0/5 power in both lower extremities, G 2/5 power in the left upper extremity and G 4/5 power in the right upper extremity except for G 4++/5 in the right finger flexors. SENSORY EXAMINATION: She was able to discern between pinprick and light touch over her entire body. REFLEXES: 1+ on the left and trace+ on the right at the biceps, triceps, and brachioradialis. 0 at both knees. 4+ at both ankles. The plantar responses were mute bilaterally. COORDINATION, STANCE & GAIT: Could not be tested. Impression/Recommendations Diagnostic Impression 1. Ms. Arabella Gayle is a 56-year-old, right-handed, black lady with a long history of multiple sclerosis, which in the past was treated with Avonex and Copaxone, but has not been treated with any disease modifying agent for numerous years. She also has a history of left trigeminal neuralgia and significant debility related to her multiple sclerosis. She is now living in a penitentiary, dependent on all her activities of daily living. She was hospitalized with increased generalized weakness and an alteration in mental state. 2. She continues to feel better generally. She has tolerated the Solumedrol well and has finished 3 doses. She feels a little stronger in the right hand. She has been able to partially feed herself. Her trigeminal discomfort is a little worse. She is also more depressed and hopeless due to her chronic illness. She denies any other new neurologic symptoms. 3. On neurological examination, she does exhibit problems with recent and remote memory, visuospatial function, higher cognitive function, and language. She also has a left seventh central facial paresis, a spastic paraplegia, left greater than right upper extremity paresis - with a definite increase in power in the right hand, relatively normal sensations, loss of deep tendon reflexes at the knees with clonus at the ankles with loss of plantar responses and diminished deep tendon reflexes in the upper extremities with the left side slightly brisker than the right. 4. The CT scan of the brain without contrast reveals multiple deep white matter lesions, but no acute pathology. 5. The MRI of the brain done on 10/06/17 revealed: Fairly extensive periventricular deep white matter signal abnormality which is typical of multiple sclerosis. Foci of abnormal diffusion signal in the right parietal deep white matter and left hayden radiata are consistent with active demyelination. 6. Laboratory data thus far reveal a relatively normal CBC, a relatively normal chemistry panel and benign urinalysis. 7. Further laboratory data have revealed no treatable cause of cognitive decline. 8. The patient's history, neurological examination, laboratory data and imaging studies are most compatible with an acute exacerbation of her multiple sclerosis with active right parietal deep white matter and left hayden radiata lesions. 9. She is definitely stronger in her right hand and could feed herself today following Solumedrol infusions. 10. She is significantly depressed. Recommendations 1. Continue present management. 2. Have her out-patient neurologist start her on a Disease Modifing Agent for MS in the near future. 3. Increase activity as tolerated. 4. Treatment of depression. 5. Can be discharged from a neurologic point of view. Seng Middleton M.D., M.S.P.H. SENG MIDDLETON Oct 09, 2017 11:11
[2017-10-09 12:00] VITALS: BP 124/78
--- NOTE | 2017-10-09 12:57 | Pulmonology Progress Note ---
Assessment/Plan Problems: (1) Altered level of consciousness (2) Generalized weakness (3) Multiple sclerosis (4) History of CVA (cerebrovascular accident) Assessment/Plan on steroids for acute exacerbation of MS doing better symptomatic treatment dvt prophylaxis eats with assistance Subjective ROS Limited/Unobtainable: No Constitutional: Reports: no symptoms HEENT: Repors: no symptoms Respiratory: Reports: no symptoms Allergies: Coded Allergies: ASPIRIN (Unverified Allergy, Unknown, 10/04/17) BACLOFEN (Unverified Allergy, Unknown, 10/04/17) PHENYTOIN (Unverified Allergy, Unknown, 10/04/17) Objective Last 24 Hour Vital Signs Date Time Temp Pulse Resp B/P (MAP) Pulse Ox O2 Delivery O2 Flow Rate FiO2 10/09/17 09:29 Room Air 10/09/17 08:56 81 158/96 10/09/17 08:00 97.6 81 20 158/96 (116) 97 97.6 10/09/17 05:52 98.4 82 18 145/96 (112) 97 98.4 10/08/17 21:00 Room Air 10/08/17 20:00 98.4 84 18 133/81 (98) 96 98.4 10/08/17 18:27 97.3 10/08/17 17:28 97.3 10/08/17 15:57 97.3 92 20 136/76 (96) 98 97.3 Intake and Output 10/08/17 10/09/17 19:00 07:00 Intake Total 1535 ml 760 ml Output Total 300 ml Balance 1535 ml 460 ml Intake Oral 540 ml 100 ml IV Total 995 ml 660 ml Output Urine Total 300 ml # Voids 3 2 General Appearance: WD/WN HEENT: normocephalic, atraumatic Respiratory/Chest: chest wall non-tender, lungs clear Breasts: no masses Cardiovascular: normal peripheral pulses, normal rate Abdomen: normal bowel sounds, soft, non tender Genitourinary: normal external genitalia Extremities: no clubbing Skin: no lesions Laboratory Tests 10/09/17 06:45: White Blood Count 6.1, Red Blood Count 4.68, Hemoglobin 12.5, Hematocrit 38.3, Mean Corpuscular Volume 82, Mean Corpuscular Hemoglobin 26.7L, Mean Corpuscular Hemoglobin Concent 32.6, Red Cell Distribution Width 11.1L, Platelet Count 231, Mean Platelet Volume 6.3L, Neutrophils (%) (Auto) 75.6H, Lymphocytes (%) (Auto) 18.8L, Monocytes (%) (Auto) 4.9, Eosinophils (%) (Auto) 0.0, Basophils (%) (Auto ) 0.6, Sodium Level 141, Potassium Level 4.0, Chloride Level 103, Carbon Dioxide Level 30, Anion Gap 8, Blood Urea Nitrogen 6L, Creatinine 0.6, Estimat Glomerular Filtration Rate > 60, Glucose Level 106, Calcium Level 9.1 Current Medications Medications (Trade) Dose Ordered Sig/Arnold Route PRN Reason Start Time Stop Time Status Last Admin Dose Admin Acetaminophen (Tylenol) 650 mg Q4H PRN ORAL Mild Pain/Temp > 100.5 10/05/17 18:00 11/04/17 17:59 10/09/17 05:06 Acetaminophen/ Hydrocodone Bitart (Pinson 5/325) 1 tab Q4H PRN ORAL Severe Pain (Pain Scale 7-10) 10/05/17 18:00 10/12/17 17:59 10/08/17 09:02 Amlodipine Besylate (Norvasc) 10 mg DAILY ORAL 10/06/17 09:00 11/04/17 08:59 10/09/17 08:56 Artificial Tears (Akwa-Tears) 1 drop Q3H PRN BOTH EYES DRY EYES 10/05/17 19:00 11/04/17 06:59 Bisacodyl (Dulcolax) 10 mg DAILY PRN RECTAL Constipation 10/06/17 09:00 11/04/17 06:14 Calcium Carbonate (Tums) 1,000 mg Q8H PRN ORAL HEARTBURN 10/05/17 18:00 11/04/17 17:59 Carbamazepine (TEGretol) 200 mg Q12HR ORAL 10/05/17 21:00 11/04/17 08:59 10/09/17 08:56 Dextrose/Sodium Chloride 1,000 ml @ 60 mls/hr [id number] IV 10/05/17 18:00 11/04/17 06:59 10/08/17 19:42 Duloxetine HCl (Cymbalta) 60 mg DAILY ORAL 10/06/17 09:00 11/04/17 08:59 10/09/17 08:54 Gadobutrol (Gadavist) 7.5 mmol NOW PRN IV Radiology Procedure 10/05/17 20:15 10/09/17 20:11 Heparin Sodium (Porcine) (Heparin 5000 units/ml) 5,000 units EVERY 12 HOURS SUBQ 10/05/17 21:00 11/04/17 20:59 10/08/17 20:22 Multivitamins (Multivitamins) 1 tab DAILY ORAL 10/06/17 09:00 11/04/17 08:59 10/09/17 08:56 Ondansetron HCl (Zofran) 4 mg Q4H PRN ORAL Nausea & Vomiting 10/05/17 18:15 11/04/17 06:14 10/08/17 04:41 Pantoprazole (Protonix) 40 mg DAILY ORAL 10/06/17 09:00 11/04/17 08:59 10/09/17 08:56 Pregabalin (Lyrica) 100 mg THREE TIMES A DAY ORAL 10/09/17 09:00 11/08/17 08:59 10/09/17 08:55 Psyllium Hydrophilic Mucilloid (Metamucil) 1 pkt BID ORAL 10/05/17 18:00 11/04/17 08:59 10/08/17 08:51 Ambrocio Poole MD Oct 09, 2017 12:57
--- NOTE | 2017-10-09 12:58 | General Progress Note ---
Assessment/Plan Problem List: (1) Chronic pain ICD Codes: G89.29 - Other chronic pain SNOMED: 27727671 (2) Altered level of consciousness ICD Codes: R40.4 - Transient alteration of awareness SNOMED: 6348905 (3) Multiple sclerosis ICD Codes: G35 - Multiple sclerosis SNOMED: 06232055 (4) History of CVA (cerebrovascular accident) ICD Codes: Z86.73 - Personal history of transient ischemic attack (TIA), and cerebral infarction without residual deficits SNOMED: 848700542 (5) Generalized weakness ICD Codes: R53.1 - Weakness SNOMED: 06171952 (6) HTN (hypertension) ICD Codes: I10 - Essential (primary) hypertension SNOMED: 62718279 (7) Leukopenia ICD Codes: D72.819 - Decreased white blood cell count, unspecified SNOMED: 16774910, 261607501 Status: stable, progressing Assessment/Plan ot pt diet pain control dc to snf if clear Subjective Constitutional: Reports: weakness Allergies: Coded Allergies: ASPIRIN (Unverified Allergy, Unknown, 10/04/17) BACLOFEN (Unverified Allergy, Unknown, 10/04/17) PHENYTOIN (Unverified Allergy, Unknown, 10/04/17) All Systems: reviewed and negative except above Subjective calm in bed Objective Last 24 Hour Vital Signs Date Time Temp Pulse Resp B/P (MAP) Pulse Ox O2 Delivery O2 Flow Rate FiO2 10/09/17 09:29 Room Air 10/09/17 08:56 81 158/96 10/09/17 08:00 97.6 81 20 158/96 (116) 97 97.6 10/09/17 05:52 98.4 82 18 145/96 (112) 97 98.4 10/08/17 21:00 Room Air 10/08/17 20:00 98.4 84 18 133/81 (98) 96 98.4 10/08/17 18:27 97.3 10/08/17 17:28 97.3 10/08/17 15:57 97.3 92 20 136/76 (96) 98 97.3 Intake and Output 10/08/17 10/09/17 19:00 07:00 Intake Total 1535 ml 760 ml Output Total 300 ml Balance 1535 ml 460 ml Intake Oral 540 ml 100 ml IV Total 995 ml 660 ml Output Urine Total 300 ml # Voids 3 2 Laboratory Tests 10/09/17 06:45: White Blood Count 6.1, Red Blood Count 4.68, Hemoglobin 12.5, Hematocrit 38.3, Mean Corpuscular Volume 82, Mean Corpuscular Hemoglobin 26.7L, Mean Corpuscular Hemoglobin Concent 32.6, Red Cell Distribution Width 11.1L, Platelet Count 231, Mean Platelet Volume 6.3L, Neutrophils (%) (Auto) 75.6H, Lymphocytes (%) (Auto) 18.8L, Monocytes (%) (Auto) 4.9, Eosinophils (%) (Auto) 0.0, Basophils (%) (Auto ) 0.6, Sodium Level 141, Potassium Level 4.0, Chloride Level 103, Carbon Dioxide Level 30, Anion Gap 8, Blood Urea Nitrogen 6L, Creatinine 0.6, Estimat Glomerular Filtration Rate > 60, Glucose Level 106, Calcium Level 9.1 Height (Feet): 5 Height (Inches): 4.00 Weight (Pounds): 165 General Appearance: alert EENT: normal ENT inspection Neck: normal alignment Cardiovascular: normal peripheral pulses, normal rate, regular rhythm Respiratory/Chest: chest wall non-tender, lungs clear, normal breath sounds Abdomen: normal bowel sounds, non tender, soft Extremities: normal inspection Edema: no edema noted Arm (L), no edema noted Arm (R), no edema noted Leg (L), no edema noted Leg (R), no edema noted Pedal (L), no edema noted Pedal (R), no edema noted Generalized Neurologic: responsive, motor weakness Skin: normal pigmentation, warm/dry He Orta DO Oct 09, 2017 12:58
[2017-10-09] MEDS ORDERED: LYRICA75 M1 ORAL (14:46)
[2017-10-09] MEDS ORDERED: NORCO 5-325 TA1 EACH ORAL (14:48)
[2017-10-09] MEDS ORDERED: HEPARIN SO5000 UNIT2 SUBQ (14:49)
[2017-10-09] MEDS ORDERED: 1/2 NS 1000ml IV ONE (15:29)
[2017-10-09] MEDS ORDERED: Tubing IV Secondary IV ONE (15:29)
[2017-10-09 16:00] VITALS: BP 92/57
--- NOTE | 2017-10-10 09:04 | Discharge Summary ---
Discharge Summary Discharge Summary _ DATE OF ADMISSION: 10/05/2017 DATE OF DISCHARGE: 10/09/2017 REASON FOR ADMISSION: 56 years old female with past medical history significant for multiple sclerosis , cerebrovascular accident, hypertension,chronic pain, bedridden status, was sent from assisted living with altered level of consciousness. Patient was less responsive than at baseline. Upon evaluation vital signs were stable except elevated blood pressure 156/92. EKG revealed normal sinus rhythm. Urinalysis was negative for evidence of UTI. WBC 3.5. Stable hemoglobin and hematocrit. Albumin 2.9. CT of the head revealed evidence of old infarct and chronic ischemic changes. No acute intracranial pathology. Patient admitted with diagnosis of altered level of consciousness, generalized weakness, hypertension, history of CVA, multiple sclerosis, chronic pain. CONSULTANTS: neurologist Dr. Moran pulmonary Dr. Poole glaze grinder/oncologist Dr. Fuller pain specialist Dr. Oreilly HOSPITAL COURSE: Patient admitted to telemetry floor. Neurology and pain specialist consults were requested . MRI of the brain revealed fairly extensive periventricular deep white matter signal abnormality, typical of multiple sclerosis. Foci of abnormal diffusion signal in the right parietal deep white matter and left hayden radiata were consistent with active demyelination. Laboratory workup revealed leukopenia, stable chemistry and benign urinalysis. ESR elevated-59. Patient started on the IV steroids for 3 days. Per neurologist , patient history, neurological examination, laboratory data and imaging study were most consistent with acute exacerbation of multiply sclerosis with active right parietal deep white matter and left hayden radiata lesions. Neurologist recommended to complete Solu-Medrol, increase activity as tolerated. Neurologist recommended to start on disease modifying agent for MS in the near future. Pain specialist closely followed. Pain management was provided as per pain specialist recommendations. Pain was controlled. Conservation Science Officer was consulted due to leukopenia . WBC on admission 3.5, the lowest WBC 2.7 on 10/07 and then started to trend up. Prior to discharge WBC 6.1, within normal limits. According to glaze grinder, cause of leukopenia not exactly known. Hepatitis panel and HIV test were negative. Leukopenia was possibly related to acute exacerbation of MS. Hemoglobin and hematocrit were closely monitored with goal to keep hemoglobin above 7. Patient exhibited mild transient anemia , likely of chronic disease . Prior to discharge hemoglobin 12.5 hematocrit 38.3, within normal limits. Supplemental oxygen titrated as needed to keep pulse oximetry above 92%. Pulmonary toilet provided as needed. Manager Functional followed. Blood pressure was managed with calcium channel penny. DVT and GI prophylaxis provided. Bowel regimen instituted. Patient was working with physical and occupational therapists. Fall precautions maintained. Swallow evaluation was done, and diet downgraded as per speech therapist recommendation with strict aspiration /reflux precautions. Nutritional assessment was done, and patient appeared to be at high nutritional risk. Nutritional recommendations implemented in plan of care. Patient clinically stabilized after steroid infusion and was stable for discharge to assisted living. FINAL DIAGNOSES: Acute exacerbation of multiple sclerosis Hypertension History of CVA Chronic pain Leukopenia Neuropathic pain Anemia of chronic disease( transien, resolved) DISCHARGE MEDICATIONS: See Medication Reconciliation list. DISCHARGE INSTRUCTIONS: Patient was discharged to assisted living facility. Follow up with her own neurologist for start of disease modifying agent for multiple scleriasis. I have been assigned to dictate discharge summary for this account. I was not involved in the patient's management. Tori Tadeo NP Oct 10, 2017 09:04
== END 2017-10-09 15:30 | DRG 43 ==
LOC: EDBD 22:18 → EMR 10-05 00:28 → 2E 10-05 00:55 → EDBEDREQ 10-05 02:05 → 4E 10-05 17:40 → 3E 10-07 14:58
DX: G35 Multiple sclerosis (principal); G62.9 Polyneuropathy, unspecified; I10 Essential (primary) hypertension; G89.29 Other chronic pain; D72.819 Decreased white blood cell count, unspecified; D63.8 Anemia in other chronic diseases classified elsewhere; Z86.73 Personal history of transient ischemic attack (TIA), and cerebral infarction without residual deficits; Z88.6 Allergy status to analgesic agent; Z88.8 Allergy status to other drugs, medicaments and biological substances; Z74.01 Bed confinement status; G50.0 Trigeminal neuralgia
CPT/HCPCS: 36415; 70450; 70553; 80048; 80053; 80329; 81001; 82306; 82607; 82746; 83036; 83690; 83880; 84443; 85007; 85025; 85651; 86592; 86703; 86705; 86709; 86803; 87081; 87340; 93005; A9585; J8499